=== PATIENT | female | born 1945 | race Caucasian/White ===

== ENCOUNTER 2016-07-23 11:44 | Inpatient (IN) | payer OTHER ==
[~2016-07-23] VITALS: Ht 160 cm; Wt 64.2 kg
[~2016-07-23 11:44] MED LIST: ACET325T14 PO; ASPI-614 PO; ASPI-621 PO; AZIT-14 PO; BACL-19 PO; CLOP75TA PO; CLOP75TA22 PO; DIPH25CA46 PO; DIPH25CA62 PO; FERR325T20 PO; HYDR25TA6 PO; METF500T4 PO; METO25TA35 PO; OMEP-110 PO; SIMV40TA3 PO
[2016-07-23] MEDS ORDERED: SODIUM CHLORIDE 0.9% 1,000ML IVBOLUS ONE (12:00)
[2016-07-23] MEDS ORDERED: SODIUM CHLORIDE FLUSH 10ML SYR IVF ONE (12:00)
[2016-07-23 12:35] LABS: ASPARTATE AMINO TRANSFERASE 15 U/L (15-37); BLOOD UREA NITROGEN 41 mg/dL (7-18)
[2016-07-23 12:41] LABS: IS PT STATUS REG ER OR PRE ER? YES
[2016-07-23 12:52] LABS: DIFF TOTAL CELLS COUNTED 100 CELL DIFF
[2016-07-23 12:57] LABS: VERIFY COUNTS? YES
[2016-07-23 12:58] LABS: ANISOCYTOSIS 1+; POLYCHROMASIA 2+
[2016-07-23 13:00] LABS: LARGE PLATELETS 1+
[2016-07-23] MEDS ORDERED: PANTOPRAZOLE 80 MG in SODIUM CHLORIDE 0.9% 50 ML IV ONE (14:00)
[2016-07-23] MEDS ORDERED: PANTOPRAZOLE 80 MG in SODIUM CHLORIDE 0.9% 100 ML IV SCH (14:00)
[2016-07-23] MEDS ORDERED: ACETAMINOPHEN 325 MG TABLET PO PRN (14:30)
[2016-07-23] MEDS ORDERED: POLYETHYLENE GLYCOL 17 GM PACKET PO PRN (14:30)
[2016-07-23] MEDS ORDERED: BISACODYL 10 MG SUPP PR PRN (14:30)
[2016-07-23] MEDS ORDERED: DOCUSATE 100 MG CAPSULE PO PRN (14:30)
[2016-07-23] MEDS ORDERED: ONDANSETRON 2MG/ML, 2ML IVP PRN (14:30)
[2016-07-23 14:37] VITALS: BP 112/52
[2016-07-23 14:51] VITALS: BP 111/53
[2016-07-23] MEDS ORDERED: DEXTROSE 50%, 50ML SYRINGE IVPush PRN (15:00)
[2016-07-23] MEDS ORDERED: DEXTROSE 4 GM TAB.CHEW PO PRN (15:00)
[2016-07-23] MEDS ORDERED: GLUCAGON 1 MG IM PRN (15:00)
[2016-07-23 15:40] VITALS: BP 129/57
[2016-07-23 16:26] VITALS: BP 98/64
[2016-07-23] MEDS: SODIUM CHLORIDE 0.9% 1,000 ML IV SCH (16:29)
[2016-07-23] MEDS: BACLOFEN 10 MG TABLET PO SCH ×2 (16:42→21:42)
[2016-07-23] MEDS: INSULIN ASPART 100 UNITS/ML, PEN SQ-INSULIN SCH ×2 (16:42→21:00)
[2016-07-23 17:30] VITALS: BP 98/62
[2016-07-23] MEDS: PANTOPRAZOLE 80 MG in SODIUM CHLORIDE 0.9% 100 ML IV SCH (17:31)
[2016-07-23 20:00] VITALS: BP 100/63
[2016-07-23] MEDS: SODIUM CHLORIDE FLUSH 10ML SYR IVF SCH (21:42)
[2016-07-23] MEDS: SIMVASTATIN 40 MG TABLET PO SCH (21:42)
[2016-07-23] MEDS: METOPROLOL TARTRATE 25 MG TABLET PO SCH (21:43)
[2016-07-24] VITALS (9 sets, daily range): BP systolic 93–124; BP diastolic 52–76
[2016-07-24] MEDS: PANTOPRAZOLE 80 MG in SODIUM CHLORIDE 0.9% 100 ML IV SCH (01:41)
[2016-07-24] MEDS: SODIUM CHLORIDE 0.9% 1,000 ML IV SCH (05:37)
[2016-07-24 06:14] LABS: OCCBLD OBC PASS
[2016-07-24 06:42] LABS: ASPARTATE AMINO TRANSFERASE 19 U/L (15-37); BLOOD UREA NITROGEN 24 mg/dL (7-18)
[2016-07-24] MEDS ORDERED: FENTANYL PF 100 MCG/2ML ONE (06:57)
[2016-07-24] MEDS ORDERED: MIDAZOLAM 1 MG/ML, 5ML ONE (06:58)
[2016-07-24] MEDS: INSULIN ASPART 100 UNITS/ML, PEN SQ-INSULIN SCH ×4 (07:00→21:00)
[2016-07-24] MEDS: SODIUM CHLORIDE FLUSH 10ML SYR IVF SCH ×2 (09:00→21:07)
[2016-07-24] MEDS ORDERED: HYDROCHLOROTHIAZIDE 25 MG TABLET PO SCH (09:00)
[2016-07-24] MEDS: METOPROLOL TARTRATE 25 MG TABLET PO SCH ×2 (09:00→21:01)
[2016-07-24] MEDS: BACLOFEN 10 MG TABLET PO SCH ×3 (09:55→21:01)
[2016-07-24] MEDS: PANTOPROZOLE 40MG TABLET PO SCH ×2 (11:00→23:17)
[2016-07-24] MEDS: SIMVASTATIN 40 MG TABLET PO SCH (21:01)
[2016-07-25 01:49] VITALS: BP 153/83
[2016-07-25 05:17] LABS: BLOOD UREA NITROGEN 19 mg/dL (7-18)
[2016-07-25 07:01] VITALS: BP 145/78
[2016-07-25] MEDS: INSULIN ASPART 100 UNITS/ML, PEN SQ-INSULIN SCH ×4 (07:42→21:00)
[2016-07-25] MEDS: BACLOFEN 10 MG TABLET PO SCH ×3 (08:22→21:52)
[2016-07-25] MEDS: METOPROLOL TARTRATE 25 MG TABLET PO SCH ×2 (08:23→21:52)
[2016-07-25] MEDS: SODIUM CHLORIDE FLUSH 10ML SYR IVF SCH ×2 (08:24→21:53)
[2016-07-25] MEDS ORDERED: Pantoprazole Sodium PO (10:39)
[2016-07-25] MEDS ORDERED: PANT40TA3 PO (10:40)
[2016-07-25] MEDS: PANTOPROZOLE 40MG TABLET PO SCH ×3 (11:26→21:51)
[2016-07-25 12:22] VITALS: BP 129/60
[2016-07-25] MEDS: FERROUS SULFATE 325 MG TABLET PO SCH (16:04)
[2016-07-25 18:37] VITALS: BP 116/60
[2016-07-25] MEDS: SIMVASTATIN 40 MG TABLET PO SCH (21:52)
[2016-07-26 02:19] VITALS: BP 142/61
[2016-07-26 06:48] VITALS: BP 124/66
[2016-07-26 07:33] LABS: ANISOCYTOSIS 1+; HYPOCHROMIA 1+; POLYCHROMASIA 1+
[2016-07-26 07:34] LABS: GIANT PLATELETS 1+; LARGE PLATELETS 1+
[2016-07-26] MEDS: FERROUS SULFATE 325 MG TABLET PO SCH (08:31)
[2016-07-26] MEDS: SODIUM CHLORIDE FLUSH 10ML SYR IVF SCH (08:32)
[2016-07-26] MEDS: BACLOFEN 10 MG TABLET PO SCH (08:32)
[2016-07-26] MEDS: METOPROLOL TARTRATE 25 MG TABLET PO SCH (08:32)
[2016-07-26] MEDS: INSULIN ASPART 100 UNITS/ML, PEN SQ-INSULIN SCH ×2 (08:32→11:00)
[2016-07-26] MEDS: PANTOPROZOLE 40MG TABLET PO SCH (11:15)
[2016-07-26 12:30] VITALS: BP 131/76
== END 2016-07-26 12:46 | disposition home or self-care (01) | DRG 377 ==
LOC: ED 13:08 → EDIP 13:47 → SUATTDRO 13:53 → 4WST 15:27 → 4NOR 07-24 15:25
PROC: 30233N1 Transfusion of Nonautologous Red Blood Cells into Peripheral Vein, Percutaneous Approach (ICD-10-PCS; 2016-07-23)
PROC: 30233N1 Transfusion of Nonautologous Red Blood Cells into Peripheral Vein, Percutaneous Approach (ICD-10-PCS; 2016-07-24)
PROC: 0DJ08ZZ Inspection of Upper Intestinal Tract, Via Natural or Artificial Opening Endoscopic (ICD-10-PCS; principal; 2016-07-24 07:30)
DX: K92.2 Gastrointestinal hemorrhage, unspecified (principal); N17.0 Acute kidney failure with tubular necrosis; D62 Acute posthemorrhagic anemia; D72.829 Elevated white blood cell count, unspecified; D69.6 Thrombocytopenia, unspecified; E78.5 Hyperlipidemia, unspecified; D47.3 Essential (hemorrhagic) thrombocythemia; D50.0 Iron deficiency anemia secondary to blood loss (chronic); D72.828 Other elevated white blood cell count; E86.0 Dehydration; I11.9 Hypertensive heart disease without heart failure; E11.42 Type 2 diabetes mellitus with diabetic polyneuropathy; F17.210 Nicotine dependence, cigarettes, uncomplicated; W18.30XA Fall on same level, unspecified, initial encounter; I25.10 Atherosclerotic heart disease of native coronary artery without angina pectoris; I25.2 Old myocardial infarction; Z82.49 Family history of ischemic heart disease and other diseases of the circulatory system; Z95.5 Presence of coronary angioplasty implant and graft; Z79.84 Long term (current) use of oral hypoglycemic drugs; Z79.82 Long term (current) use of aspirin; Z79.899 Other long term (current) drug therapy; Z90.49 Acquired absence of other specified parts of digestive tract; Z88.0 Allergy status to penicillin; Z88.5 Allergy status to narcotic agent; Y93.89 Activity, other specified; Y92.89 Other specified places as the place of occurrence of the external cause; Y99.8 Other external cause status
CPT/HCPCS: 36415; 70450; 71010; 80048; 80053; 82272; 82728; 82962; 83540; 83550; 83880; 84484; 85018; 85025; 85610; 86850; 86900; 86923; 87324; 93005; 96360; 96361; J1815; J2250; J3010; C9113; J7030; P9016

== ENCOUNTER 2016-11-11 09:08 | Emergency (ER) | payer OTHER ==
[~2016-11-11] VITALS: Ht 162.6 cm; Wt 68.0 kg
[~2016-11-11 09:08] MED LIST changes: -AZIT-14 PO; +AZIT250T89 PO; +PANT40TA3 PO; +Pantoprazole Sodium PO
[2016-11-11] MEDS ORDERED: GABA-827 PO (09:42)
[2016-11-11] MEDS ORDERED: LISI2.5T PO (09:42)
[2016-11-11] MEDS ORDERED: SODIUM CHLORIDE 0.9% 1,000ML IVBOLUS ONE ×2 (10:00→11:30)
[2016-11-11] MEDS ORDERED: SODIUM CHLORIDE FLUSH 10ML SYR IVF ONE (10:00)
[2016-11-11] MEDS ORDERED: LORazepam 2 MG/ML, 1ML IVPush ONE (10:00)
[2016-11-11] MEDS ORDERED: LORazepam 2 MG/ML, 1ML ONE (10:16)
[2016-11-11 10:23] LABS: HEMATOCRIT 33.5 % (34.6-47.8); HEMOGLOBIN 11.1 g/dL (11.7-16.4); WHITE BLOOD COUNT 5.7 x10^3/uL (3.4-10)
[2016-11-11 10:24] LABS: BLOOD UREA NITROGEN 23 mg/dL (7-18)
[2016-11-11 11:33] LABS: DIFF TOTAL CELLS COUNTED 100 CELL DIFF
[2016-11-11 11:35] LABS: VERIFY COUNTS? YES
[2016-11-11 11:36] LABS: ANISOCYTOSIS 2+
[2016-11-11 11:37] LABS: LARGE PLATELETS 1+; MICROCYTOSIS 1+; POLYCHROMASIA 1+
[2016-11-11 12:34] VITALS: BP 107/52
== END 2016-11-11 12:37 | disposition home or self-care (01) ==
LOC: ED 10:15
DX: R25.1 Tremor, unspecified (principal); E11.9 Type 2 diabetes mellitus without complications; I11.9 Hypertensive heart disease without heart failure; I25.10 Atherosclerotic heart disease of native coronary artery without angina pectoris; I25.2 Old myocardial infarction; Z88.0 Allergy status to penicillin; Z88.5 Allergy status to narcotic agent
CPT/HCPCS: 36415; 70450; 80048; 82040; 83735; 84443; 85025; 93005; 96361; 96374; 99285; J2060; J7030

== ENCOUNTER → 2017-03-18 | Outpatient (CLI) | payer OTHER ==
[~2017-03-18] MED LIST changes: -CLOP75TA22 PO; +CLOP75TA52 PO; +FERR325T18 PO; -FERR325T20 PO; +GABA-827 PO; +LISI2.5T PO
== END | disposition home or self-care (01) ==
LOC: CFH 10:11
PROVIDERS: ATTEND Family Medicine
DX: Z12.31 Encounter for screening mammogram for malignant neoplasm of breast (principal)
CPT/HCPCS: G0202

== ENCOUNTER 2017-05-08 13:21 | Inpatient (IN) | payer MEDICARE, OTHER ==
[~2017-05-08] VITALS: Ht 162.6 cm; Wt 69.5 kg
[2017-05-08] MEDS ORDERED: SODIUM CHLORIDE 0.9% 1,000 ML IV ONE (13:43)
[2017-05-08] MEDS ORDERED: SODIUM CHLORIDE FLUSH 10ML SYR IVF ONE (14:00)
[2017-05-08 14:24] LABS: BASOPHILS # (AUTO) 0.01 x10^3/uL (0-0.1); BASOPHILS % (AUTO) 0 % (0-1); EOSINOPHILS # (AUTO) 0.04 x10^3/uL (0-0.4); EOSINOPHILS % (AUTO) 1 % (1-7); LYMPHOCYTES # (AUTO) 0.79 x10^3/uL (1-3.4); LYMPHOCYTES % (AUTO) 11 % (22-44); MD NO; MEAN CORPUSCULAR HEMOGLOBIN 28.6 pg (27.0-34.8); MEAN CORPUSCULAR HGB CONC 33.1 g/dL (32.4-35.8); MEAN CORPUSCULAR VOLUME 86.4 fL (80-100); MEAN PLATELET VOLUME 8.6 fL (7.4-10.4); MONOCYTES # (AUTO) 0.46 x10^3/uL (0.2-0.8); MONOCYTES % (AUTO) 7 % (2-9); NEUTROPHILS # (AUTO) 5.67 x10^3/uL (1.8-6.8); NEUTROPHILS % (AUTO) 81 % (42-75); PLATELET COUNT 243 x10^3/uL (130-400); RED BLOOD COUNT 3.59 x10^6/uL (3.82-5.3); RED CELL DISTRIBUTION WIDTH 20.4 % (9.6-15.2)
[2017-05-08 14:33] LABS: INTERNATIONAL NORMALIZED RATIO 1.05 (0.93-1.1); PROTHROMBIN TIME 10.8 Seconds (9.6-11.5)
[2017-05-08 14:35] LABS: ALBUMIN 3.6 g/dL (3.4-5.0); ANION GAP 10 mmol/L (5-15); CALCIUM 8.2 mg/dL (8.5-10.1); CHLORIDE 105 mmol/L (98-107)
[2017-05-08 14:39] LABS: ALANINE AMINOTRANSFERASE 18 U/L (12-78); ALKALINE PHOSPHATASE 84 U/L (45-117); BILIRUBIN,TOTAL 0.4 mg/dL (0.2-1.0); CREATININE 1.59 mg/dL (0.55-1.02)
[2017-05-08 14:54] LABS: MICROSCOPIC NOT IND
[2017-05-08 15:06] LABS: CULTURE INDICATED? NO
[2017-05-08] MEDS ORDERED: SODIUM CHLORIDE FLUSH 10ML SYR IVF PRN (16:30)
[2017-05-08] MEDS ORDERED: SODIUM CHLORIDE 0.9% 1,000 ML IV SCH (17:40)
[2017-05-08] MEDS ORDERED: POLYETHYLENE GLYCOL 17 GM PACKET PO PRN (18:00)
[2017-05-08] MEDS ORDERED: ACETAMINOPHEN 325 MG TABLET PO PRN (18:00)
[2017-05-08] MEDS ORDERED: VANCOMYCIN PER PHARMACY MC PRN (18:00)
[2017-05-08] MEDS ORDERED: ENALAPRILAT 1.25 MG/ML, 2ML IVPush PRN (18:00)
[2017-05-08] MEDS ORDERED: CEFTRIAXONE 2 GM in SODIUM CHLORIDE 0.9% 50 ML IV SCH (18:00)
[2017-05-08] MEDS ORDERED: morphine SULFATE 10 MG/ML, 1ML IVPush PRN (18:00)
[2017-05-08] MEDS ORDERED: hydrALAzine 20 MG/ML, 1ML IVPush PRN (18:00)
[2017-05-08] MEDS ORDERED: VANCOMYCIN PMX 1GM/200ML 200 ML IV ONE (18:00)
[2017-05-08] MEDS: GABAPENTIN 400 MG CAPSULE PO SCH ×2 (18:00→20:44)
[2017-05-08] MEDS ORDERED: ONDANSETRON 2MG/ML, 2ML IVPush PRN (18:00)
[2017-05-08] MEDS ORDERED: BISACODYL 10 MG SUPP PR PRN (18:00)
[2017-05-08] MEDS ORDERED: PLEASE ENTER HEIGHT AND WEIGHT MC SCH (18:30)
[2017-05-08 18:39] LABS: FREE T4 (FREE THYROXINE) 1.3 ng/dL (0.76-1.46); THYROID STIMULATING HORMONE 1.62 mIU/L (0.358-3.740)
[2017-05-08 18:40] VITALS: BP 97/63
[2017-05-08 18:43] LABS: HEMOGLOBIN A1C 5.5 % (4.2-6.3)
[2017-05-08] MEDS ORDERED: PHARMACOKINETIC MONITORING MC PRN (19:30)
[2017-05-08] MEDS ORDERED: VANCOMYCIN 1,200 MG in SODIUM CHLORIDE 0.9% 250 ML IV ONE (19:30)
[2017-05-08] MEDS ORDERED: PHARMACOKINETIC CONSULTATION MC ONE (19:30)
[2017-05-08] MEDS: PANTOPROZOLE 40MG TABLET PO SCH (20:44)
[2017-05-08] MEDS: METOPROLOL TARTRATE 25 MG TABLET PO SCH (20:44)
[2017-05-08] MEDS: FERROUS SULFATE 325 MG TABLET PO SCH (20:44)
[2017-05-08] MEDS: HEPARIN 5,000 UNITS/ML, 1ML SQ SCH (20:45)
[2017-05-08] MEDS: SIMVASTATIN 40 MG TABLET PO SCH (20:45)
[2017-05-08] MEDS: INSULIN LISPRO 100 UNITS/ML, PEN SQ-INSULIN SCH (20:45)
[2017-05-08] MEDS: NICOTINE 14MG/24 HR PATCH.TD24 TD SCH (21:50)
[2017-05-08] MEDS: CEFTRIAXONE PMX 2GM/50ML 50 ML IVPB SCH (21:51)
[2017-05-08 23:27] VITALS: BP 109/57
[2017-05-09 02:06] VITALS: BP 97/60
[2017-05-09 05:02] LABS: BASOPHILS # (AUTO) 0.02 x10^3/uL (0-0.1); BASOPHILS % (AUTO) 0 % (0-1); CHLORIDE 113 mmol/L (98-107); EOSINOPHILS # (AUTO) 0.03 x10^3/uL (0-0.4); EOSINOPHILS % (AUTO) 1 % (1-7); LYMPHOCYTES # (AUTO) 0.94 x10^3/uL (1-3.4); LYMPHOCYTES % (AUTO) 17 % (22-44); MD NO; MEAN CORPUSCULAR HEMOGLOBIN 29.5 pg (27.0-34.8); MEAN CORPUSCULAR HGB CONC 34.3 g/dL (32.4-35.8); MEAN CORPUSCULAR VOLUME 85.8 fL (80-100); MEAN PLATELET VOLUME 8.7 fL (7.4-10.4); MONOCYTES % (AUTO) 7 % (2-9); NEUTROPHILS # (AUTO) 4.07 x10^3/uL (1.8-6.8); NEUTROPHILS % (AUTO) 75 % (42-75); PLATELET COUNT 251 x10^3/uL (130-400); RED BLOOD COUNT 3.24 x10^6/uL (3.82-5.3)
[2017-05-09 05:10] LABS: ALANINE AMINOTRANSFERASE 15 U/L (12-78); ALBUMIN 3.2 g/dL (3.4-5.0); ALKALINE PHOSPHATASE 75 U/L (45-117); ANION GAP 7 mmol/L (5-15); BILIRUBIN,TOTAL 0.3 mg/dL (0.2-1.0); CHOL/HDL RATIO 4.8; CHOLESTEROL, TOTAL 111 mg/dL (140-239); HDL CHOL % 21 % (28-40); HDL CHOLESTEROL (DIRECT) 23 mg/dL (40-60); LDL CHOLESTEROL,CALCULATED 28 mg/dL (54-169); LDL/HDL RATIO 1.2 (0.5-3.0); TOTAL PROTEIN 6.5 g/dL (6.4-8.2); TRIGLYCERIDES 301 mg/dL (50-200); VLDL CHOLESTEROL 60 mg/dL (0-25)
[2017-05-09] MEDS: GABAPENTIN 400 MG CAPSULE PO SCH ×4 (05:28→20:33)
[2017-05-09] MEDS: HEPARIN 5,000 UNITS/ML, 1ML SQ SCH ×3 (05:29→20:34)
[2017-05-09 06:35] VITALS: BP 102/64
[2017-05-09] MEDS ORDERED: GADOBUTROL 7.5 MMOL/7.5 ML PFS ONE (08:40)
[2017-05-09] MEDS ORDERED: METHOCARBAMOL 750 MG TABLET PO PRN (10:30)
[2017-05-09] MEDS: DEXAMETHASONE 4 MG/ML, 1ML IVPush SCH ×4 (10:30→23:30)
[2017-05-09] MEDS ORDERED: ERGOCALCIFEROL 50,000 UNIT CAPSULE PO SCH (10:30)
[2017-05-09] MEDS: INSULIN LISPRO 100 UNITS/ML, PEN SQ-INSULIN SCH ×4 (12:37→20:37)
[2017-05-09] MEDS: HYDROCHLOROTHIAZIDE 25 MG TABLET PO SCH (12:53)
[2017-05-09] MEDS: PANTOPROZOLE 40MG TABLET PO SCH (12:54)
[2017-05-09] MEDS: LISINOPRIL 5 MG TABLET PO SCH (12:54)
[2017-05-09] MEDS: METOPROLOL TARTRATE 25 MG TABLET PO SCH ×2 (12:54→20:33)
[2017-05-09] MEDS: OMEPRAZOLE 20 MG CAPSULE.DR PO SCH (12:54)
[2017-05-09] MEDS: FERROUS SULFATE 325 MG TABLET PO SCH ×2 (12:55→20:33)
[2017-05-09] MEDS: SENNA/DOCUSATE TABLET PO SCH (12:57)
[2017-05-09 13:15] VITALS: BP 120/79
[2017-05-09 20:09] VITALS: BP 110/68
[2017-05-09] MEDS: VANCOMYCIN 1,200 MG in SODIUM CHLORIDE 0.9% 250 ML IV SCH (20:32)
[2017-05-09] MEDS: SIMVASTATIN 40 MG TABLET PO SCH (20:33)
[2017-05-09] MEDS: NICOTINE 14MG/24 HR PATCH.TD24 TD SCH (20:39)
[2017-05-09] MEDS: CEFTRIAXONE PMX 2GM/50ML 50 ML IVPB SCH (22:00)
[2017-05-09] MEDS ORDERED: VANCOMYCIN 1,200 MG in SODIUM CHLORIDE 0.9% 250 ML IV SCH (23:00)
[2017-05-10 01:53] VITALS: BP 110/69
[2017-05-10] MEDS: GABAPENTIN 400 MG CAPSULE PO SCH ×4 (05:37→21:28)
[2017-05-10] MEDS: DEXAMETHASONE 4 MG/ML, 1ML IVPush SCH ×4 (05:37→22:40)
[2017-05-10] MEDS: HEPARIN 5,000 UNITS/ML, 1ML SQ SCH ×3 (05:37→21:29)
[2017-05-10 06:57] VITALS: BP 121/54
[2017-05-10] MEDS: INSULIN LISPRO 100 UNITS/ML, PEN SQ-INSULIN SCH ×4 (07:00→21:30)
[2017-05-10] MEDS: LISINOPRIL 5 MG TABLET PO SCH (08:28)
[2017-05-10] MEDS: FERROUS SULFATE 325 MG TABLET PO SCH ×2 (08:29→21:28)
[2017-05-10] MEDS: METOPROLOL TARTRATE 25 MG TABLET PO SCH ×2 (08:29→21:28)
[2017-05-10] MEDS: HYDROCHLOROTHIAZIDE 25 MG TABLET PO SCH (08:29)
[2017-05-10] MEDS: SENNA/DOCUSATE TABLET PO SCH (08:30)
[2017-05-10] MEDS: OMEPRAZOLE 20 MG CAPSULE.DR PO SCH (08:32)
[2017-05-10 12:36] VITALS: BP 118/72
[2017-05-10 19:31] VITALS: BP 129/73
[2017-05-10] MEDS: VANCOMYCIN 1,200 MG in SODIUM CHLORIDE 0.9% 250 ML IV SCH (20:11)
[2017-05-10] MEDS: SIMVASTATIN 40 MG TABLET PO SCH (21:28)
[2017-05-10] MEDS: NICOTINE 14MG/24 HR PATCH.TD24 TD SCH (21:29)
[2017-05-10] MEDS: CEFTRIAXONE PMX 2GM/50ML 50 ML IVPB SCH (22:39)
[2017-05-11 01:28] VITALS: BP 114/63
[2017-05-11 04:55] LABS: CHLORIDE 105 mmol/L (98-107)
[2017-05-11] MEDS: GABAPENTIN 400 MG CAPSULE PO SCH ×3 (04:56→15:59)
[2017-05-11] MEDS: DEXAMETHASONE 4 MG/ML, 1ML IVPush SCH ×3 (04:56→15:58)
[2017-05-11] MEDS: HEPARIN 5,000 UNITS/ML, 1ML SQ SCH ×2 (04:56→13:33)
[2017-05-11 05:00] LABS: ANION GAP 8 mmol/L (5-15); CALCIUM 8.7 mg/dL (8.5-10.1); CREATININE 0.78 mg/dL (0.55-1.02)
[2017-05-11 06:28] VITALS: BP 115/65
[2017-05-11] MEDS: OMEPRAZOLE 20 MG CAPSULE.DR PO SCH (07:58)
[2017-05-11] MEDS: INSULIN LISPRO 100 UNITS/ML, PEN SQ-INSULIN SCH ×3 (07:58→15:59)
[2017-05-11] MEDS: SENNA/DOCUSATE TABLET PO SCH (09:56)
[2017-05-11] MEDS: FERROUS SULFATE 325 MG TABLET PO SCH (09:56)
[2017-05-11] MEDS: LISINOPRIL 5 MG TABLET PO SCH (09:56)
[2017-05-11] MEDS: HYDROCHLOROTHIAZIDE 25 MG TABLET PO SCH (09:56)
[2017-05-11] MEDS: METOPROLOL TARTRATE 25 MG TABLET PO SCH (09:57)
[2017-05-11 13:15] VITALS: BP 115/70
[2017-05-11] MEDS ORDERED: OMEP-110 PO (15:06)
[2017-05-11] MEDS ORDERED: ERGO500017 PO (15:06)
[2017-05-11] MEDS ORDERED: METH750T2 PO (15:06)
[2017-05-11] MEDS ORDERED: ACET325T14 PO (15:06)
[2017-05-11] MEDS ORDERED: METH4TAB2 PO (15:06)
== END 2017-05-11 17:13 | disposition home or self-care (01) | DRG 682 ==
LOC: ED 14:00 → EDIP 16:22 → 4EST 17:47
PROVIDERS: ADMIT Internal Medicine Pulmonary Disease; ATTEND Internal Medicine Pulmonary Disease
PROC: 0T9B70Z Drainage of Bladder with Drainage Device, Via Natural or Artificial Opening (ICD-10-PCS; principal; 2017-05-08)
DX: N17.9 Acute kidney failure, unspecified (principal); G93.41 Metabolic encephalopathy; E11.22 Type 2 diabetes mellitus with diabetic chronic kidney disease; E11.42 Type 2 diabetes mellitus with diabetic polyneuropathy; M48.02 Spinal stenosis, cervical region; G95.20 Unspecified cord compression; K92.2 Gastrointestinal hemorrhage, unspecified; I12.9 Hypertensive chronic kidney disease with stage 1 through stage 4 chronic kidney disease, or unspecified chronic kidney disease; W18.30XA Fall on same level, unspecified, initial encounter; I07.1 Rheumatic tricuspid insufficiency; D50.9 Iron deficiency anemia, unspecified; F17.200 Nicotine dependence, unspecified, uncomplicated; E78.5 Hyperlipidemia, unspecified; N18.2 Chronic kidney disease, stage 2 (mild); I25.10 Atherosclerotic heart disease of native coronary artery without angina pectoris; E55.9 Vitamin D deficiency, unspecified; I35.0 Nonrheumatic aortic (valve) stenosis; I99.8 Other disorder of circulatory system; M19.90 Unspecified osteoarthritis, unspecified site; M54.12 Radiculopathy, cervical region; Y92.009 Unspecified place in unspecified non-institutional (private) residence as the place of occurrence of the external cause; I25.2 Old myocardial infarction; Z98.1 Arthrodesis status; Z95.5 Presence of coronary angioplasty implant and graft; Z88.5 Allergy status to narcotic agent; Z88.0 Allergy status to penicillin
CPT/HCPCS: 36415; 70450; 70553; 71045; 72156; 72157; 72158; 80048; 80053; 80061; 80202; 81003; 82140; 82306; 82607; 82962; 83036; 83605; 83735; 84100; 84155; 84156; 84165; 84166; 84439; 84443; 85025; 85610; 85730; 87040; 93005; 93306; 93880; 99285; A9585; J0696; J1100; J1644; J3370; J1815; J7050

== ENCOUNTER → 2018-01-01 | Outpatient (CLI) | payer MEDICARE, MEDICAID ==
[~2018-01-01] MED LIST changes: +CALC1CAP8 PO; +CHOL500050 PO; +ERGO500017 PO; +HYDR50TA13 PO; +MELA5TAB19 PO; +METF500T17 PO; -METF500T4 PO; +METH4TAB2 PO; +METH750T2 PO; +PRIM50TA PO
[2018-01-01 10:32] LABS: BASOPHILS # (AUTO) 0.05 x10^3/uL (0-0.1); BASOPHILS % (AUTO) 1 % (0-1); EOSINOPHILS # (AUTO) 0.12 x10^3/uL (0-0.4); EOSINOPHILS % (AUTO) 2 % (1-7); LYMPHOCYTES # (AUTO) 1.18 x10^3/uL (1-3.4); LYMPHOCYTES % (AUTO) 16 % (22-44); MD NO; MEAN CORPUSCULAR HEMOGLOBIN 29.1 pg (27.0-34.8); MEAN CORPUSCULAR HGB CONC 33.4 g/dL (32.4-35.8); MEAN CORPUSCULAR VOLUME 87.1 fL (80-100); MEAN PLATELET VOLUME 8.5 fL (7.4-10.4); MONOCYTES # (AUTO) 0.43 x10^3/uL (0.2-0.8); MONOCYTES % (AUTO) 6 % (2-9); NEUTROPHILS # (AUTO) 5.46 x10^3/uL (1.8-6.8); NEUTROPHILS % (AUTO) 75 % (42-75); PLATELET COUNT 397 x10^3/uL (130-400); RED BLOOD COUNT 3.98 x10^6/uL (3.82-5.3); RED CELL DISTRIBUTION WIDTH 21.7 % (9.6-15.2)
[2018-01-01 10:41] LABS: INTERNATIONAL NORMALIZED RATIO 1.02 (0.93-1.1); PROTHROMBIN TIME 10.5 Seconds (9.6-11.5)
[2018-01-01 10:43] LABS: ALBUMIN 4.1 g/dL (3.4-5.0); ANION GAP 9 mmol/L (5-15); CALCIUM 9.4 mg/dL (8.5-10.1); CHLORIDE 100 mmol/L (98-107)
[2018-01-01 10:46] LABS: ALANINE AMINOTRANSFERASE 21 U/L (12-78); ALKALINE PHOSPHATASE 112 U/L (45-117); BILIRUBIN,TOTAL 0.5 mg/dL (0.2-1.0); CREATININE 1.26 mg/dL (0.55-1.02); TOTAL PROTEIN 8.1 g/dL (6.4-8.2)
[2018-01-01 11:10] LABS: MICROSCOPIC INDICATED
[2018-01-01 11:13] LABS: CULTURE INDICATED? YES
== END | disposition home or self-care (01) ==
LOC: STAR 08:56
PROVIDERS: ATTEND Neurological Surgery
DX: Z01.818 Encounter for other preprocedural examination (principal); M43.22 Fusion of spine, cervical region; M41.86 Other forms of scoliosis, lumbar region; M48.062 Spinal stenosis, lumbar region with neurogenic claudication; M43.16 Spondylolisthesis, lumbar region; M54.16 Radiculopathy, lumbar region; M51.36 Other intervertebral disc degeneration, lumbar region
CPT/HCPCS: 36415; 71046; 72114; 80053; 81001; 85025; 85610; 85730; 87086; 93005

== ENCOUNTER 2018-01-13 07:00 | Inpatient (IN) | payer MEDICARE, MEDICAID ==
[~2018-01-13] VITALS: Ht 160 cm; Wt 71.2 kg
[2018-01-13] MEDS ORDERED: MIDAZOLAM 1 MG/ML, 2ML ONE (08:31)
[2018-01-13] MEDS ORDERED: FENTANYL PF 250 MCG/5ML ONE (08:31)
[2018-01-13] MEDS ORDERED: PROPOFOL 50 ML ONE (10:00)
[2018-01-13] MEDS ORDERED: LACTATED RINGERS 1,000 ML IV SCH ×2 (10:00→19:00)
[2018-01-13] MEDS ORDERED: GABAPENTIN 300 MG CAPSULE PO ONE (10:00)
[2018-01-13] MEDS ORDERED: ACETAMINOPHEN 500 MG TABLET PO ONE (10:00)
[2018-01-13] MEDS ORDERED: OXYcodone IR 5MG TABLET PO ONE (10:00)
[2018-01-13] MEDS ORDERED: SCOPOLAMINE PATCH, 1.5MG PATCH.TD72 TD ONE (10:00)
[2018-01-13 10:02] VITALS: BP 145/79
[2018-01-13] MEDS ORDERED: THROMBIN 20,000 UNIT VIAL TP ONE (11:07)
[2018-01-13] MEDS ORDERED: BUPIVACAINE/PF 0.5% ONE (11:07)
[2018-01-13] MEDS ORDERED: BUPIVACAINE/PF-EPI 0.5% 1:200K ONE (11:07)
[2018-01-13] MEDS ORDERED: BACITRACIN 50,000 UNIT ONE ×2 (11:08→11:21)
[2018-01-13] MEDS ORDERED: VANCOMYCIN 1,000 MG ONE ×2 (11:08)
[2018-01-13] MEDS ORDERED: ONDANSETRON 2MG/ML, 2ML ONE ×2 (11:28→15:27)
[2018-01-13] MEDS ORDERED: SUCCINYLCHOLINE 20 MG/ML, 10ML ONE (11:28)
[2018-01-13] MEDS ORDERED: ROCURONIUM 10 MG/ML,10ML ONE (11:28)
[2018-01-13] MEDS ORDERED: PROCHLORPERAZINE 5 MG/ML, 2ML ONE (15:27)
[2018-01-13] MEDS ORDERED: hydrALAzine 20 MG/ML, 1ML IV PRN (15:30)
[2018-01-13] MEDS ORDERED: FENTANYL PF 100 MCG/2ML IV PRN (15:30)
[2018-01-13] MEDS ORDERED: HYDROmorphone 1 MG/ML, 1ML IV PRN (15:30)
[2018-01-13] MEDS ORDERED: ONDANSETRON 2MG/ML, 2ML IV PRN ×2 (15:30→19:30)
[2018-01-13] MEDS ORDERED: PROMETHAZINE 25 MG/ML, 1ML IV PRN (15:30)
[2018-01-13] MEDS ORDERED: MEPERIDINE/PF 25MG/0.5ML IVPush PRN (15:30)
[2018-01-13] MEDS ORDERED: OXYcodone 5 MG/5 ML ORAL.SOL UDC PO PRN (15:30)
[2018-01-13] MEDS ORDERED: LABETALOL 5MG/ML, 20ML IV PRN ×2 (15:30→19:30)
[2018-01-13] MEDS ORDERED: OXYcodone 5 MG/5 ML ORAL.SOL UDC ONE (15:57)
[2018-01-13] MEDS ORDERED: PROCHLORPERAZINE 5 MG/ML, 2ML IVPush ONE (16:00)
[2018-01-13] MEDS ORDERED: EPHEDRINE 50 MG/ML, 1ML ONE (16:13)
[2018-01-13 16:18] LABS: MD YES; MEAN CORPUSCULAR HEMOGLOBIN 28.6 pg (27.0-34.8); MEAN CORPUSCULAR HGB CONC 32.2 g/dL (32.4-35.8); MEAN CORPUSCULAR VOLUME 88.7 fL (80-100); MEAN PLATELET VOLUME 9.2 fL (7.4-10.4); PLATELET COUNT 466 x10^3/uL (130-400); RED BLOOD COUNT 2.64 x10^6/uL (3.82-5.3); RED CELL DISTRIBUTION WIDTH 21.1 % (9.6-15.2)
[2018-01-13 16:28] LABS: INTERNATIONAL NORMALIZED RATIO 1.14 (0.93-1.1); PROTHROMBIN TIME 11.7 Seconds (9.6-11.5)
[2018-01-13] MEDS ORDERED: EPHEDRINE 50 MG/ML, 1ML IVPush PRN (16:30)
[2018-01-13 16:47] LABS: BAND#(MANUAL) 0.42 x10^3/uL; BANDS%(MANUAL) 3 % (0-7); BASOS#(MANUAL) 0.28 x10^3/uL (0-0.1); BASOS% (MANUAL) 2 % (0-1); LYMPH#(MANUAL) 1.97 x10^3/uL (1-3.4); LYMPHS% (MANUAL) 14 % (22-44); METAMYELOCYTES# (MANUAL) 0.14 x10^3/uL (0-0); METAMYELOCYTES% (MANUAL) 1 % (0-1); MONOS#(MANUAL) 0.42 x10^3/uL (0.3-2.7); MONOS% (MANUAL) 3 % (2-9); MYELOCYTES# (MANUAL) 0.14 x10^3/uL (0-0); MYELOCYTES% (MANUAL) 1 % (0-0); SEGS% (MANUAL) 76 % (42-75)
[2018-01-13 16:48] LABS: ANISOCYTOSIS 1+; HYPOCHROMIA 1+; MICROCYTOSIS 1+; POLYCHROMASIA 1+
[2018-01-13 16:49] LABS: <PLATELET ESTIMATE> INCREASED; <PLT MORPHOLOGY> NORMAL PLT MORPH; OVALOCYTES 1+
[2018-01-13] MEDS ORDERED: FUROSEMIDE 20 MG/2 ML IV ONE (17:00)
[2018-01-13 17:28] VITALS: BP 114/57
[2018-01-13 17:52] VITALS: BP 121/66
[2018-01-13 18:20] VITALS: BP 108/65
[2018-01-13 19:25] VITALS: BP 97/59
[2018-01-13] MEDS: BACLOFEN 10 MG TABLET PO SCH (19:30)
[2018-01-13] MEDS ORDERED: morphine SULFATE 10 MG/ML, 1ML IV PRN (19:30)
[2018-01-13] MEDS ORDERED: hydrOXyzine 50MG TABLET PO PRN (19:30)
[2018-01-13] MEDS ORDERED: MAGNESIUM HYDROXIDE 8%, 30ML UDC PO PRN (19:30)
[2018-01-13] MEDS: [UNRECOGNIZED DRUG - REMARK] MC SCH (19:30)
[2018-01-13] MEDS ORDERED: DIPHENHYDRAMINE 50 MG/ML, 1ML IVPush PRN (19:30)
[2018-01-13] MEDS ORDERED: OXYcodone IR 5MG TABLET PO PRN (19:30)
[2018-01-13] MEDS ORDERED: DIPHENHYDRAMINE 25 MG CAPSULE PO PRN (19:30)
[2018-01-13] MEDS ORDERED: BISACODYL 10 MG SUPP PR PRN (19:30)
[2018-01-13] MEDS ORDERED: HYDROcodone/APAP 10/325 MG TABLET PO PRN (20:00)
[2018-01-13] MEDS: CEFAZOLIN PMX 1GM/50ML 50 ML IVPB SCH (20:14)
[2018-01-13] MEDS: MELATONIN 5 MG TABLET PO SCH (20:46)
[2018-01-13 20:58] LABS: BASOPHILS % (AUTO) 0 % (0-1); EOSINOPHILS # (AUTO) 0.02 x10^3/uL (0-0.4); EOSINOPHILS % (AUTO) 0 % (1-7); LYMPHOCYTES # (AUTO) 0.53 x10^3/uL (1-3.4); LYMPHOCYTES % (AUTO) 5 % (22-44); MD NO; MEAN CORPUSCULAR HEMOGLOBIN 29.5 pg (27.0-34.8); MEAN CORPUSCULAR HGB CONC 33.8 g/dL (32.4-35.8); MEAN CORPUSCULAR VOLUME 87.3 fL (80-100); MEAN PLATELET VOLUME 8.4 fL (7.4-10.4); MONOCYTES # (AUTO) 0.45 x10^3/uL (0.2-0.8); MONOCYTES % (AUTO) 4 % (2-9); NEUTROPHILS # (AUTO) 10.12 x10^3/uL (1.8-6.8); NEUTROPHILS % (AUTO) 91 % (42-75); PLATELET COUNT 294 x10^3/uL (130-400); RED BLOOD COUNT 3.44 x10^6/uL (3.82-5.3); RED CELL DISTRIBUTION WIDTH 19.3 % (9.6-15.2)
[2018-01-13] MEDS: INSULIN REGULAR 100 UNITS/ML, 3ML VIAL SQ-INSULIN SCH (21:00)
[2018-01-13] MEDS: PRIMIDONE 50 MG TABLET PO SCH (21:00)
[2018-01-13] MEDS ORDERED: PRIMIDONE 250 MG TABLET ONE (21:02)
[2018-01-13] MEDS: GABAPENTIN 400 MG CAPSULE PO SCH (21:06)
[2018-01-13] MEDS: FAMOTIDINE 20 MG TABLET PO SCH (21:06)
[2018-01-13] MEDS: FERROUS SULFATE 325 MG TABLET PO SCH (21:07)
[2018-01-13] MEDS: SIMVASTATIN 40 MG TABLET PO SCH (21:07)
[2018-01-14 00:09] VITALS: BP 99/56
[2018-01-14] MEDS: LACTATED RINGERS 1,000 ML IV SCH ×3 (00:30→17:04)
[2018-01-14] MEDS: [UNRECOGNIZED DRUG - REMARK] MC SCH ×3 (02:51→19:24)
[2018-01-14] MEDS: BACLOFEN 10 MG TABLET PO SCH ×4 (02:51→20:45)
[2018-01-14] MEDS: CEFAZOLIN PMX 1GM/50ML 50 ML IVPB SCH (03:44)
[2018-01-14 04:25] VITALS: BP 103/52
[2018-01-14] MEDS: METOPROLOL TARTRATE 25 MG TABLET PO SCH ×2 (05:42→17:03)
[2018-01-14 05:54] LABS: BASOPHILS # (AUTO) 0.03 x10^3/uL (0-0.1); BASOPHILS % (AUTO) 0 % (0-1); EOSINOPHILS # (AUTO) 0.01 x10^3/uL (0-0.4); EOSINOPHILS % (AUTO) 0 % (1-7); LYMPHOCYTES # (AUTO) 0.66 x10^3/uL (1-3.4); LYMPHOCYTES % (AUTO) 8 % (22-44); MD NO; MEAN CORPUSCULAR HGB CONC 34.8 g/dL (32.4-35.8); MEAN CORPUSCULAR VOLUME 86.4 fL (80-100); MEAN PLATELET VOLUME 8.5 fL (7.4-10.4); MONOCYTES # (AUTO) 0.49 x10^3/uL (0.2-0.8); MONOCYTES % (AUTO) 6 % (2-9); NEUTROPHILS # (AUTO) 6.97 x10^3/uL (1.8-6.8); NEUTROPHILS % (AUTO) 86 % (42-75); PLATELET COUNT 262 x10^3/uL (130-400); RED BLOOD COUNT 2.91 x10^6/uL (3.82-5.3); RED CELL DISTRIBUTION WIDTH 19.6 % (9.6-15.2)
[2018-01-14 06:01] LABS: ANION GAP 8 mmol/L (5-15); CALCIUM 7.8 mg/dL (8.5-10.1); CHLORIDE 107 mmol/L (98-107); CREATININE 1.16 mg/dL (0.55-1.02)
[2018-01-14] MEDS: INSULIN REGULAR 100 UNITS/ML, 3ML VIAL SQ-INSULIN SCH ×4 (06:06→20:46)
[2018-01-14] MEDS: ENOXAPARIN 40 MG/0.4 ML SQ SCH (06:06)
[2018-01-14 08:00] VITALS: BP 99/54
[2018-01-14] MEDS ORDERED: SODIUM CHLORIDE 0.9% 250 ML IV ONE (08:30)
[2018-01-14] MEDS: SENNA/DOCUSATE TABLET PO SCH (08:45)
[2018-01-14] MEDS: GABAPENTIN 400 MG CAPSULE PO SCH ×3 (08:46→20:45)
[2018-01-14] MEDS: metFORMIN 850 MG TABLET PO SCH ×2 (08:46→17:03)
[2018-01-14] MEDS: FAMOTIDINE 20 MG TABLET PO SCH ×2 (08:46→20:45)
[2018-01-14] MEDS: FERROUS SULFATE 325 MG TABLET PO SCH ×3 (08:46→20:45)
[2018-01-14 13:30] VITALS: BP 93/40
[2018-01-14 15:10] LABS: BASOPHILS # (AUTO) 0.03 x10^3/uL (0-0.1); BASOPHILS % (AUTO) 0 % (0-1); EOSINOPHILS # (AUTO) 0.01 x10^3/uL (0-0.4); EOSINOPHILS % (AUTO) 0 % (1-7); LYMPHOCYTES # (AUTO) 0.57 x10^3/uL (1-3.4); LYMPHOCYTES % (AUTO) 9 % (22-44); MEAN CORPUSCULAR HEMOGLOBIN 30.1 pg (27.0-34.8); MEAN CORPUSCULAR HGB CONC 34.7 g/dL (32.4-35.8); MEAN CORPUSCULAR VOLUME 86.6 fL (80-100); MEAN PLATELET VOLUME 8.7 fL (7.4-10.4); MONOCYTES # (AUTO) 0.46 x10^3/uL (0.2-0.8); MONOCYTES % (AUTO) 7 % (2-9); NEUTROPHILS % (AUTO) 84 % (42-75); PLATELET COUNT 244 x10^3/uL (130-400); RED BLOOD COUNT 2.66 x10^6/uL (3.82-5.3)
[2018-01-14 15:11] LABS: MD NO
[2018-01-14 20:31] VITALS: BP 97/49
[2018-01-14] MEDS: MELATONIN 5 MG TABLET PO SCH (20:39)
[2018-01-14] MEDS ORDERED: PRIMIDONE 250 MG TABLET ONE (20:41)
[2018-01-14] MEDS: PRIMIDONE 50 MG TABLET PO SCH (20:45)
[2018-01-14] MEDS: SIMVASTATIN 40 MG TABLET PO SCH (20:45)
[2018-01-15] VITALS (11 sets, daily range): BP systolic 97–142; BP diastolic 47–70
[2018-01-15] MEDS: BACLOFEN 10 MG TABLET PO SCH ×4 (02:17→21:11)
[2018-01-15] MEDS: LACTATED RINGERS 1,000 ML IV SCH ×2 (02:17→16:08)
[2018-01-15] MEDS: [UNRECOGNIZED DRUG - REMARK] MC SCH ×2 (02:31→03:30)
[2018-01-15 04:42] LABS: ANION GAP 6 mmol/L (5-15); CALCIUM 7.8 mg/dL (8.5-10.1); CHLORIDE 109 mmol/L (98-107); CREATININE 0.77 mg/dL (0.55-1.02); MEAN CORPUSCULAR HGB CONC 34.4 g/dL (32.4-35.8); PLATELET COUNT 258 x10^3/uL (130-400); RED BLOOD COUNT 2.59 x10^6/uL (3.82-5.3); RED CELL DISTRIBUTION WIDTH 19.8 % (9.6-15.2)
[2018-01-15 05:01] LABS: BASOPHILS # (AUTO) 0.03 x10^3/uL (0-0.1); BASOPHILS % (AUTO) 1 % (0-1); EOSINOPHILS # (AUTO) 0.01 x10^3/uL (0-0.4); EOSINOPHILS % (AUTO) 0 % (1-7); LYMPHOCYTES # (AUTO) 0.67 x10^3/uL (1-3.4); LYMPHOCYTES % (AUTO) 11 % (22-44); MD SCAN; MONOCYTES # (AUTO) 0.63 x10^3/uL (0.2-0.8); MONOCYTES % (AUTO) 10 % (2-9); NEUTROPHILS # (AUTO) 5.04 x10^3/uL (1.8-6.8); NEUTROPHILS % (AUTO) 79 % (42-75)
[2018-01-15] MEDS: ENOXAPARIN 40 MG/0.4 ML SQ SCH (05:25)
[2018-01-15] MEDS: METOPROLOL TARTRATE 25 MG TABLET PO SCH ×2 (06:00→17:30)
[2018-01-15] MEDS: INSULIN REGULAR 100 UNITS/ML, 3ML VIAL SQ-INSULIN SCH ×4 (07:00→21:00)
[2018-01-15] MEDS: GABAPENTIN 400 MG CAPSULE PO SCH ×3 (10:06→21:11)
[2018-01-15] MEDS: SENNA/DOCUSATE TABLET PO SCH (10:06)
[2018-01-15] MEDS: metFORMIN 850 MG TABLET PO SCH ×2 (10:06→16:07)
[2018-01-15] MEDS: FERROUS SULFATE 325 MG TABLET PO SCH ×3 (10:06→21:11)
[2018-01-15] MEDS: FAMOTIDINE 20 MG TABLET PO SCH ×2 (10:06→21:11)
[2018-01-15] MEDS: PRIMIDONE 50 MG TABLET PO SCH (21:11)
[2018-01-15] MEDS: MELATONIN 5 MG TABLET PO SCH (21:11)
[2018-01-15] MEDS: SIMVASTATIN 40 MG TABLET PO SCH (21:11)
[2018-01-16 01:20] VITALS: BP 118/67
[2018-01-16] MEDS: [UNRECOGNIZED DRUG - REMARK] MC SCH ×4 (03:30→17:18)
[2018-01-16] MEDS: BACLOFEN 10 MG TABLET PO SCH ×4 (03:43→21:51)
[2018-01-16 05:38] LABS: BASOPHILS # (AUTO) 0.03 x10^3/uL (0-0.1); BASOPHILS % (AUTO) 0 % (0-1); EOSINOPHILS # (AUTO) 0.01 x10^3/uL (0-0.4); EOSINOPHILS % (AUTO) 0 % (1-7); LYMPHOCYTES # (AUTO) 0.94 x10^3/uL (1-3.4); LYMPHOCYTES % (AUTO) 12 % (22-44); MD NO; MEAN CORPUSCULAR VOLUME 88.1 fL (80-100); MEAN PLATELET VOLUME 8.8 fL (7.4-10.4); MONOCYTES # (AUTO) 0.78 x10^3/uL (0.2-0.8); MONOCYTES % (AUTO) 10 % (2-9); NEUTROPHILS # (AUTO) 5.93 x10^3/uL (1.8-6.8); NEUTROPHILS % (AUTO) 77 % (42-75); PLATELET COUNT 249 x10^3/uL (130-400); RED BLOOD COUNT 3.03 x10^6/uL (3.82-5.3); RED CELL DISTRIBUTION WIDTH 18.1 % (9.6-15.2)
[2018-01-16] MEDS: LACTATED RINGERS 1,000 ML IV SCH ×4 (06:04→21:50)
[2018-01-16] MEDS: METOPROLOL TARTRATE 25 MG TABLET PO SCH ×2 (06:14→17:07)
[2018-01-16] MEDS: ENOXAPARIN 40 MG/0.4 ML SQ SCH (06:14)
[2018-01-16] MEDS: INSULIN REGULAR 100 UNITS/ML, 3ML VIAL SQ-INSULIN SCH ×4 (06:18→21:58)
[2018-01-16] MEDS: SENNA/DOCUSATE TABLET PO SCH (08:04)
[2018-01-16] MEDS: metFORMIN 850 MG TABLET PO SCH ×2 (08:05→17:07)
[2018-01-16] MEDS: FAMOTIDINE 20 MG TABLET PO SCH ×2 (08:05→21:51)
[2018-01-16] MEDS: GABAPENTIN 400 MG CAPSULE PO SCH ×3 (08:05→21:50)
[2018-01-16] MEDS: FERROUS SULFATE 325 MG TABLET PO SCH ×3 (08:05→21:51)
[2018-01-16 08:07] VITALS: BP 125/61
[2018-01-16 13:22] VITALS: BP 113/66
[2018-01-16] MEDS: HYDROcodone/APAP 5/325 TABLET PO PRN (15:27)
[2018-01-16 20:52] VITALS: BP 111/72
[2018-01-16] MEDS: SIMVASTATIN 40 MG TABLET PO SCH (21:51)
[2018-01-16] MEDS: PRIMIDONE 50 MG TABLET PO SCH (21:51)
[2018-01-16] MEDS: MELATONIN 5 MG TABLET PO SCH (21:51)
[2018-01-17 00:36] VITALS: BP 127/77
[2018-01-17] MEDS: BACLOFEN 10 MG TABLET PO SCH ×4 (02:30→21:37)
[2018-01-17] MEDS: INSULIN REGULAR 100 UNITS/ML, 3ML VIAL SQ-INSULIN SCH ×4 (07:00→21:00)
[2018-01-17] MEDS: ENOXAPARIN 40 MG/0.4 ML SQ SCH (07:48)
[2018-01-17] MEDS: METOPROLOL TARTRATE 25 MG TABLET PO SCH ×2 (07:49→16:46)
[2018-01-17 07:52] VITALS: BP 141/86
[2018-01-17] MEDS: LACTATED RINGERS 1,000 ML IV SCH ×2 (07:58→16:41)
[2018-01-17] MEDS: [UNRECOGNIZED DRUG - REMARK] MC SCH ×2 (08:19→11:30)
[2018-01-17] MEDS: FAMOTIDINE 20 MG TABLET PO SCH ×2 (08:31→21:37)
[2018-01-17] MEDS: metFORMIN 850 MG TABLET PO SCH ×2 (08:31→16:41)
[2018-01-17] MEDS: GABAPENTIN 400 MG CAPSULE PO SCH ×3 (08:31→21:37)
[2018-01-17] MEDS: FERROUS SULFATE 325 MG TABLET PO SCH ×3 (08:31→21:37)
[2018-01-17] MEDS: SENNA/DOCUSATE TABLET PO SCH (08:32)
[2018-01-17 09:52] LABS: CLOSTRIDIUM DIFFICILE ANTIGEN NEGATIVE; CLOSTRIDIUM DIFFICILE TOXIN NEGATIVE (Negative)
[2018-01-17] MEDS: HYDROcodone/APAP 5/325 TABLET PO PRN (11:38)
[2018-01-17 13:39] VITALS: BP 103/71
[2018-01-17 19:22] VITALS: BP 94/55
[2018-01-17] MEDS: MELATONIN 5 MG TABLET PO SCH (21:37)
[2018-01-17] MEDS: PRIMIDONE 50 MG TABLET PO SCH (21:37)
[2018-01-17] MEDS: SIMVASTATIN 40 MG TABLET PO SCH (21:37)
[2018-01-18] MEDS: LACTATED RINGERS 1,000 ML IV SCH ×2 (01:39→08:10)
[2018-01-18 01:41] VITALS: BP 115/77
[2018-01-18] MEDS: BACLOFEN 10 MG TABLET PO SCH ×4 (03:31→21:23)
[2018-01-18 06:15] LABS: MEAN CORPUSCULAR HEMOGLOBIN 29.9 pg (27.0-34.8); MEAN CORPUSCULAR HGB CONC 33.4 g/dL (32.4-35.8); MEAN CORPUSCULAR VOLUME 89.4 fL (80-100); MEAN PLATELET VOLUME 8.7 fL (7.4-10.4); PLATELET COUNT 246 x10^3/uL (130-400); RED BLOOD COUNT 3.14 x10^6/uL (3.82-5.3); RED CELL DISTRIBUTION WIDTH 18.6 % (9.6-15.2)
[2018-01-18 06:17] LABS: BASOPHILS # (AUTO) 0.03 x10^3/uL (0-0.1); BASOPHILS % (AUTO) 1 % (0-1); EOSINOPHILS # (AUTO) 0.04 x10^3/uL (0-0.4); EOSINOPHILS % (AUTO) 1 % (1-7); LYMPHOCYTES # (AUTO) 0.59 x10^3/uL (1-3.4); LYMPHOCYTES % (AUTO) 10 % (22-44); MD SCAN; MONOCYTES # (AUTO) 0.58 x10^3/uL (0.2-0.8); MONOCYTES % (AUTO) 9 % (2-9); NEUTROPHILS # (AUTO) 4.97 x10^3/uL (1.8-6.8); NEUTROPHILS % (AUTO) 80 % (42-75)
[2018-01-18] MEDS: METOPROLOL TARTRATE 25 MG TABLET PO SCH (06:25)
[2018-01-18] MEDS: ENOXAPARIN 40 MG/0.4 ML SQ SCH (06:26)
[2018-01-18] MEDS: INSULIN REGULAR 100 UNITS/ML, 3ML VIAL SQ-INSULIN SCH ×4 (06:27→21:00)
[2018-01-18 07:08] VITALS: BP 104/68
[2018-01-18] MEDS: LISINOPRIL 5 MG TABLET PO SCH (07:49)
[2018-01-18] MEDS: SENNA/DOCUSATE TABLET PO SCH (07:49)
[2018-01-18] MEDS: FERROUS SULFATE 325 MG TABLET PO SCH ×3 (08:10→21:24)
[2018-01-18] MEDS: metFORMIN 850 MG TABLET PO SCH ×2 (08:10→17:02)
[2018-01-18] MEDS: GABAPENTIN 400 MG CAPSULE PO SCH ×3 (08:10→21:22)
[2018-01-18] MEDS: FAMOTIDINE 20 MG TABLET PO SCH ×2 (08:10→21:22)
[2018-01-18 09:16] LABS: ANION GAP 7 mmol/L (5-15); CALCIUM 8.6 mg/dL (8.5-10.1); CHLORIDE 107 mmol/L (98-107); CREATININE 0.61 mg/dL (0.55-1.02)
[2018-01-18] MEDS ORDERED: FUROSEMIDE 20 MG/2 ML IV ONE (10:00)
[2018-01-18 11:11] LABS: CULTURE INDICATED? YES; MICROSCOPIC INDICATED
[2018-01-18] MEDS ORDERED: ASPIRIN 325 MG TABLET PO ONE (12:30)
[2018-01-18 12:42] VITALS: BP 148/99
[2018-01-18] MEDS ORDERED: OMNIPAQUE 350 MG/ML, 100ML BOTTLE ONE (13:08)
[2018-01-18] MEDS: CEFTRIAXONE PMX 1GM/50ML 50 ML IV SCH (13:27)
[2018-01-18] MEDS ORDERED: SPIRONOLACTONE 25 MG TABLET PO ONE (15:30)
[2018-01-18] MEDS: ALBUTEROL/IPRATROPIUM 2.5MG/0.5MG, 3 ML HHN SCH ×2 (15:30→21:13)
[2018-01-18 18:36] VITALS: BP 102/66
[2018-01-18] MEDS: METOPROLOL SUCCINATE 50 MG TAB.ER.24H PO SCH (21:22)
[2018-01-18] MEDS: ATORVASTATIN 80 MG TABLET PO SCH (21:23)
[2018-01-18] MEDS: PRIMIDONE 50 MG TABLET PO SCH (21:24)
[2018-01-18] MEDS: MELATONIN 5 MG TABLET PO SCH (21:24)
[2018-01-19 02:30] VITALS: BP 94/64
[2018-01-19] MEDS: BACLOFEN 10 MG TABLET PO SCH ×4 (02:55→21:07)
[2018-01-19] MEDS: ALBUTEROL/IPRATROPIUM 2.5MG/0.5MG, 3 ML HHN SCH ×4 (03:22→20:18)
[2018-01-19 05:59] LABS: BASOPHILS # (AUTO) 0.05 x10^3/uL (0-0.1); BASOPHILS % (AUTO) 1 % (0-1); EOSINOPHILS # (AUTO) 0.04 x10^3/uL (0-0.4); EOSINOPHILS % (AUTO) 1 % (1-7); LYMPHOCYTES # (AUTO) 0.68 x10^3/uL (1-3.4); LYMPHOCYTES % (AUTO) 11 % (22-44); MD NO; MEAN CORPUSCULAR HEMOGLOBIN 29.6 pg (27.0-34.8); MEAN CORPUSCULAR HGB CONC 33.1 g/dL (32.4-35.8); MEAN CORPUSCULAR VOLUME 89.4 fL (80-100); MEAN PLATELET VOLUME 10.5 fL (7.4-10.4); MONOCYTES # (AUTO) 0.52 x10^3/uL (0.2-0.8); MONOCYTES % (AUTO) 9 % (2-9); NEUTROPHILS # (AUTO) 4.76 x10^3/uL (1.8-6.8); NEUTROPHILS % (AUTO) 79 % (42-75); PLATELET COUNT 264 x10^3/uL (130-400); RED BLOOD COUNT 3.23 x10^6/uL (3.82-5.3); RED CELL DISTRIBUTION WIDTH 18.6 % (9.6-15.2)
[2018-01-19] MEDS: ENOXAPARIN 40 MG/0.4 ML SQ SCH (06:00)
[2018-01-19 06:55] LABS: ANION GAP 8 mmol/L (5-15); CALCIUM 8.1 mg/dL (8.5-10.1); CHLORIDE 107 mmol/L (98-107); CREATININE 0.81 mg/dL (0.55-1.02)
[2018-01-19 06:56] LABS: % IRON SATURATION 19 % (20-55); ALANINE AMINOTRANSFERASE 21 U/L (12-78); ALBUMIN 2.2 g/dL (3.4-5.0); IRON LEVEL 26 mcg/dL (50-170); TOTAL IRON BINDING CAPACITY 136 mcg/dL (250-450)
[2018-01-19] MEDS: INSULIN REGULAR 100 UNITS/ML, 3ML VIAL SQ-INSULIN SCH ×4 (07:00→19:45)
[2018-01-19 07:03] LABS: ALKALINE PHOSPHATASE 72 U/L (45-117); BILIRUBIN,TOTAL 0.4 mg/dL (0.2-1.0); TOTAL PROTEIN 5.6 g/dL (6.4-8.2)
[2018-01-19 07:13] VITALS: BP 103/71
[2018-01-19] MEDS: LISINOPRIL 5 MG TABLET PO SCH (09:00)
[2018-01-19] MEDS: FAMOTIDINE 20 MG TABLET PO SCH ×2 (09:10→21:07)
[2018-01-19] MEDS: FERROUS SULFATE 325 MG TABLET PO SCH ×3 (09:10→21:07)
[2018-01-19] MEDS: SENNA/DOCUSATE TABLET PO SCH (09:10)
[2018-01-19] MEDS: FUROSEMIDE 20 MG TABLET PO SCH (09:10)
[2018-01-19] MEDS: SPIRONOLACTONE 25 MG TABLET PO SCH (09:11)
[2018-01-19] MEDS: GABAPENTIN 400 MG CAPSULE PO SCH ×3 (09:11→21:07)
[2018-01-19] MEDS: CLOPIDOGREL 75 MG TABLET PO SCH (11:26)
[2018-01-19] MEDS: ASPIRIN 81 MG TABLET EC PO SCH (11:26)
[2018-01-19 12:00] VITALS: BP 99/65
[2018-01-19] MEDS: CEFTRIAXONE PMX 1GM/50ML 50 ML IV SCH (13:17)
[2018-01-19 15:01] VITALS: BP_SYST 100; BP_SYST 107; BP_DIAS 61; BP_DIAS 62
[2018-01-19 20:10] VITALS: BP 97/65
[2018-01-19 21:07] VITALS: BP 105/65
[2018-01-19] MEDS: METOPROLOL SUCCINATE 50 MG TAB.ER.24H PO SCH (21:07)
[2018-01-19] MEDS: ATORVASTATIN 80 MG TABLET PO SCH (21:07)
[2018-01-19] MEDS: MELATONIN 5 MG TABLET PO SCH (21:07)
[2018-01-19] MEDS: PRIMIDONE 50 MG TABLET PO SCH (21:08)
[2018-01-20 02:31] VITALS: BP 103/72
[2018-01-20] MEDS: BACLOFEN 10 MG TABLET PO SCH ×4 (02:35→20:46)
[2018-01-20] MEDS: ALBUTEROL/IPRATROPIUM 2.5MG/0.5MG, 3 ML HHN SCH ×4 (02:42→21:11)
[2018-01-20] MEDS: ASPIRIN 81 MG TABLET EC PO SCH (05:48)
[2018-01-20] MEDS: ENOXAPARIN 40 MG/0.4 ML SQ SCH (05:48)
[2018-01-20 05:53] LABS: MEAN CORPUSCULAR HEMOGLOBIN 30.1 pg (27.0-34.8); MEAN CORPUSCULAR HGB CONC 33.5 g/dL (32.4-35.8); MEAN CORPUSCULAR VOLUME 89.6 fL (80-100); RED BLOOD COUNT 3.02 x10^6/uL (3.82-5.3); RED CELL DISTRIBUTION WIDTH 18.7 % (9.6-15.2)
[2018-01-20 06:10] LABS: BASOPHILS # (AUTO) 0.04 x10^3/uL (0-0.1); BASOPHILS % (AUTO) 1 % (0-1); EOSINOPHILS # (AUTO) 0.06 x10^3/uL (0-0.4); EOSINOPHILS % (AUTO) 1 % (1-7); LYMPHOCYTES # (AUTO) 0.85 x10^3/uL (1-3.4); LYMPHOCYTES % (AUTO) 15 % (22-44); MD SCAN; MEAN PLATELET VOLUME 9.1 fL (7.4-10.4); MONOCYTES # (AUTO) 0.61 x10^3/uL (0.2-0.8); MONOCYTES % (AUTO) 10 % (2-9); NEUTROPHILS # (AUTO) 4.27 x10^3/uL (1.8-6.8); NEUTROPHILS % (AUTO) 73 % (42-75); PLATELET COUNT 250 x10^3/uL (130-400)
[2018-01-20] MEDS: INSULIN REGULAR 100 UNITS/ML, 3ML VIAL SQ-INSULIN SCH ×4 (07:00→20:54)
[2018-01-20 07:22] VITALS: BP 104/71
[2018-01-20] MEDS ORDERED: METO-93 PO (07:23)
[2018-01-20] MEDS ORDERED: SPIR25TA PO (07:23)
[2018-01-20] MEDS ORDERED: CLOP75TA PO (07:23)
[2018-01-20] MEDS ORDERED: ATOR-2 PO (07:30)
[2018-01-20] MEDS: CLOPIDOGREL 75 MG TABLET PO SCH (07:43)
[2018-01-20] MEDS: FERROUS SULFATE 325 MG TABLET PO SCH ×3 (07:43→20:46)
[2018-01-20] MEDS: FAMOTIDINE 20 MG TABLET PO SCH ×2 (07:43→20:46)
[2018-01-20] MEDS: GABAPENTIN 400 MG CAPSULE PO SCH ×3 (07:43→20:46)
[2018-01-20] MEDS: SENNA/DOCUSATE TABLET PO SCH (07:44)
[2018-01-20] MEDS: FUROSEMIDE 20 MG TABLET PO SCH (07:44)
[2018-01-20] MEDS: SPIRONOLACTONE 25 MG TABLET PO SCH (07:44)
[2018-01-20] MEDS: LISINOPRIL 5 MG TABLET PO SCH (07:44)
[2018-01-20] MEDS ORDERED: ASPI-621 PO (09:54)
[2018-01-20] MEDS: CIPROFLOXACIN 500 MG TABLET PO SCH ×2 (11:28→20:46)
[2018-01-20 12:30] VITALS: BP 112/76
[2018-01-20] MEDS: CEFTRIAXONE PMX 1GM/50ML 50 ML IV SCH (13:41)
[2018-01-20 19:46] VITALS: BP 116/79
[2018-01-20] MEDS: MELATONIN 5 MG TABLET PO SCH (20:46)
[2018-01-20] MEDS: PRIMIDONE 50 MG TABLET PO SCH (20:46)
[2018-01-20] MEDS: ATORVASTATIN 80 MG TABLET PO SCH (20:46)
[2018-01-20] MEDS: METOPROLOL SUCCINATE 50 MG TAB.ER.24H PO SCH (20:49)
[2018-01-21 01:45] VITALS: BP 112/72
[2018-01-21] MEDS: BACLOFEN 10 MG TABLET PO SCH ×3 (02:30→14:40)
[2018-01-21] MEDS: ALBUTEROL/IPRATROPIUM 2.5MG/0.5MG, 3 ML HHN SCH ×3 (02:34→15:13)
[2018-01-21] MEDS: ASPIRIN 81 MG TABLET EC PO SCH (05:13)
[2018-01-21] MEDS: ENOXAPARIN 40 MG/0.4 ML SQ SCH (05:13)
[2018-01-21 06:28] LABS: MEAN CORPUSCULAR VOLUME 90.2 fL (80-100); RED BLOOD COUNT 3.17 x10^6/uL (3.82-5.3)
[2018-01-21 06:29] LABS: MD YES; MEAN CORPUSCULAR HEMOGLOBIN 30.5 pg (27.0-34.8); MEAN CORPUSCULAR HGB CONC 33.8 g/dL (32.4-35.8); MEAN PLATELET VOLUME 9.8 fL (7.4-10.4); PLATELET COUNT 329 x10^3/uL (130-400); RED CELL DISTRIBUTION WIDTH 18.7 % (9.6-15.2)
[2018-01-21 06:31] LABS: ANISOCYTOSIS 1+; BAND#(MANUAL) 0.07 x10^3/uL; BANDS%(MANUAL) 1 % (0-7); BASOS#(MANUAL) 0.07 x10^3/uL (0-0.1); BASOS% (MANUAL) 1 % (0-1); LYMPH#(MANUAL) 0.26 x10^3/uL (1-3.4); LYMPHS% (MANUAL) 4 % (22-44); MONOS#(MANUAL) 0.79 x10^3/uL (0.3-2.7); MONOS% (MANUAL) 12 % (2-9); SEG#(MANUAL) 5.41 x10^3/uL (1.8-6.8); SEGS% (MANUAL) 82 % (42-75)
[2018-01-21 06:32] LABS: <PLATELET ESTIMATE> ADEQUATE
[2018-01-21 06:33] LABS: GIANT PLATELETS 1+; LARGE PLATELETS 2+
[2018-01-21 06:34] LABS: POLYCHROMASIA 1+
[2018-01-21 06:46] VITALS: BP 121/83
[2018-01-21] MEDS: INSULIN REGULAR 100 UNITS/ML, 3ML VIAL SQ-INSULIN SCH ×3 (07:00→16:00)
[2018-01-21] MEDS: GABAPENTIN 400 MG CAPSULE PO SCH ×2 (08:32→17:36)
[2018-01-21] MEDS: FERROUS SULFATE 325 MG TABLET PO SCH ×2 (08:32→17:36)
[2018-01-21] MEDS: SPIRONOLACTONE 25 MG TABLET PO SCH (08:32)
[2018-01-21] MEDS: CLOPIDOGREL 75 MG TABLET PO SCH (08:32)
[2018-01-21] MEDS: FAMOTIDINE 20 MG TABLET PO SCH (08:32)
[2018-01-21] MEDS: CIPROFLOXACIN 500 MG TABLET PO SCH (08:33)
[2018-01-21] MEDS: FUROSEMIDE 20 MG TABLET PO SCH (08:33)
[2018-01-21] MEDS: SENNA/DOCUSATE TABLET PO SCH (08:34)
[2018-01-21] MEDS: LISINOPRIL 5 MG TABLET PO SCH (08:34)
[2018-01-21] MEDS: CEFTRIAXONE PMX 1GM/50ML 50 ML IV SCH (12:19)
[2018-01-21 14:06] VITALS: BP 123/76
[2018-02-03] MEDS ORDERED: ATOR-2 PO (21:48)
[2018-02-03] MEDS ORDERED: SPIR25TA5 PO (21:48)
[2018-02-07] MEDS ORDERED: ERGO500017 PO (05:50)
[2018-02-07] MEDS ORDERED: ASPI-621 PO (05:50)
[2018-02-07] MEDS ORDERED: FERR-51 PO (05:50)
[2018-02-07] MEDS ORDERED: DOCU-131 PO (05:50)
[2018-02-07] MEDS ORDERED: TRAM50TA2 PO (05:50)
[2018-02-07] MEDS ORDERED: GABA-827 PO (05:50)
[2018-02-07] MEDS ORDERED: ACET325T14 PO (05:50)
[2018-02-07] MEDS ORDERED: MELA5TAB19 PO (05:50)
[2018-02-07] MEDS ORDERED: POLY17PO5 PO (05:50)
[2018-02-07] MEDS ORDERED: ONDA4TAB13 PO (05:50)
[2018-02-07] MEDS ORDERED: PRIM50TA34 PO (05:50)
[2018-02-07] MEDS ORDERED: BACL-19 PO (05:50)
[2018-02-07] MEDS ORDERED: CLOP75TA PO (05:50)
[2018-02-07] MEDS ORDERED: ATOR-2 PO (05:50)
[2018-02-07] MEDS ORDERED: COLC0.6T37 PO (05:50)
[2018-02-07] MEDS ORDERED: ALLO100T30 PO (05:50)
[2018-02-07] MEDS ORDERED: CALC1TAB68 PO (05:50)
[2018-02-07] MEDS ORDERED: METO25TA2 PO (05:50)
== END 2018-01-21 19:02 | DRG 453 ==
LOC: ORIP 08:49 → 4NOR 18:36 → 5SO 01-18 12:05
PROVIDERS: ADMIT Neurological Surgery; ATTEND Neurological Surgery
PROC: 0SG00AJ Fusion of Lumbar Vertebral Joint with Interbody Fusion Device, Posterior Approach, Anterior Column, Open Approach (ICD-10-PCS; 2018-01-13)
PROC: 4A11X4G Monitoring of Peripheral Nervous Electrical Activity, Intraoperative, External Approach (ICD-10-PCS; 2018-01-13)
PROC: 30233N1 Transfusion of Nonautologous Red Blood Cells into Peripheral Vein, Percutaneous Approach (ICD-10-PCS; 2018-01-13)
PROC: 0SG0071 Fusion of Lumbar Vertebral Joint with Autologous Tissue Substitute, Posterior Approach, Posterior Column, Open Approach (ICD-10-PCS; principal; 2018-01-13 11:00)
PROC: 0T9B70Z Drainage of Bladder with Drainage Device, Via Natural or Artificial Opening (ICD-10-PCS; 2018-01-18)
DX: M48.061 Spinal stenosis, lumbar region without neurogenic claudication (principal); I50.43 Acute on chronic combined systolic (congestive) and diastolic (congestive) heart failure; I24.9 Acute ischemic heart disease, unspecified; I50.40 Unspecified combined systolic (congestive) and diastolic (congestive) heart failure; D62 Acute posthemorrhagic anemia; I42.9 Cardiomyopathy, unspecified; I13.0 Hypertensive heart and chronic kidney disease with heart failure and stage 1 through stage 4 chronic kidney disease, or unspecified chronic kidney disease; N39.0 Urinary tract infection, site not specified; M43.16 Spondylolisthesis, lumbar region; N18.3 Chronic kidney disease, stage 3 (moderate); J44.9 Chronic obstructive pulmonary disease, unspecified; K21.9 Gastro-esophageal reflux disease without esophagitis; I08.0 Rheumatic disorders of both mitral and aortic valves; E11.22 Type 2 diabetes mellitus with diabetic chronic kidney disease; E78.5 Hyperlipidemia, unspecified; E11.51 Type 2 diabetes mellitus with diabetic peripheral angiopathy without gangrene; E11.42 Type 2 diabetes mellitus with diabetic polyneuropathy; I25.10 Atherosclerotic heart disease of native coronary artery without angina pectoris; I25.2 Old myocardial infarction; M21.372 Foot drop, left foot; M48.02 Spinal stenosis, cervical region; M51.16 Intervertebral disc disorders with radiculopathy, lumbar region; M81.0 Age-related osteoporosis without current pathological fracture; L90.5 Scar conditions and fibrosis of skin; Z87.891 Personal history of nicotine dependence; Z95.5 Presence of coronary angioplasty implant and graft; Z88.0 Allergy status to penicillin; Z88.5 Allergy status to narcotic agent; Z98.1 Arthrodesis status; Z79.82 Long term (current) use of aspirin
CPT/HCPCS: 36415; 71045; 71275; 72100; 80048; 80053; 81001; 82962; 83540; 83550; 83735; 84100; 84484; 85025; 85610; 86850; 86900; 86923; 87086; 87324; 93005; 93306; 94640; C1713; G0378; J0690; J0696; J1650; J1815; J2250; J2405; J2704; J3010; J3370; J3490; J7620; Q9967; C1762; J0330; J0780; J1940; J7050; J7120; P9016

== ENCOUNTER 2018-01-24 18:58 | Inpatient (IN) | payer MEDICARE, MEDICAID ==
[~2018-01-24] VITALS: Ht 162.6 cm; Wt 68.5 kg
[~2018-01-24 18:58] MED LIST changes: +ATOR-2 PO; +METO-93 PO; +SPIR25TA PO
[2018-01-24] MEDS ORDERED: SODIUM CHLORIDE 0.9% 1,000ML IVBOLUS ONE (19:30)
[2018-01-24 19:48] LABS: ALANINE AMINOTRANSFERASE 20 U/L (12-78); ALBUMIN 2.6 g/dL (3.4-5.0); ANION GAP 7 mmol/L (5-15); CALCIUM 7.7 mg/dL (8.5-10.1); CHLORIDE 108 mmol/L (98-107); CREATININE 0.81 mg/dL (0.55-1.02)
[2018-01-24 19:52] LABS: ALKALINE PHOSPHATASE 67 U/L (45-117); BILIRUBIN,TOTAL 0.6 mg/dL (0.2-1.0); TOTAL PROTEIN 5.9 g/dL (6.4-8.2); TROPONIN I 0.118 ng/mL (0.000-0.045)
[2018-01-24 20:05] LABS: BASOPHILS # (AUTO) 0.04 x10^3/uL (0-0.1); BASOPHILS % (AUTO) 0 % (0-1); EOSINOPHILS # (AUTO) 0.04 x10^3/uL (0-0.4); EOSINOPHILS % (AUTO) 0 % (1-7); LYMPHOCYTES # (AUTO) 1.18 x10^3/uL (1-3.4); LYMPHOCYTES % (AUTO) 13 % (22-44); MD MORPH REVIEW ONLY; MEAN CORPUSCULAR HEMOGLOBIN 29.7 pg (27.0-34.8); MEAN CORPUSCULAR HGB CONC 33.3 g/dL (32.4-35.8); MEAN CORPUSCULAR VOLUME 89.3 fL (80-100); MEAN PLATELET VOLUME 9.6 fL (7.4-10.4); MONOCYTES # (AUTO) 0.96 x10^3/uL (0.2-0.8); MONOCYTES % (AUTO) 10 % (2-9); NEUTROPHILS # (AUTO) 7.25 x10^3/uL (1.8-6.8); NEUTROPHILS % (AUTO) 77 % (42-75); PLATELET COUNT 480 x10^3/uL (130-400); RED BLOOD COUNT 3.18 x10^6/uL (3.82-5.3); RED CELL DISTRIBUTION WIDTH 18.4 % (9.6-15.2)
[2018-01-24 20:06] LABS: <PLATELET ESTIMATE> INCREASED; ANISOCYTOSIS 1+; GIANT PLATELETS 1+; POLYCHROMASIA 1+
[2018-01-24] MEDS ORDERED: SIMV40TA3 PO (20:14)
[2018-01-24 20:21] LABS: CULTURE INDICATED? YES; MICROSCOPIC INDICATED
[2018-01-24] MEDS ORDERED: ASPIRIN 81 MG TABLET CHEW ONE (20:25)
[2018-01-24] MEDS ORDERED: ASPIRIN 81 MG TABLET CHEW PO ONE (20:30)
[2018-01-24] MEDS ORDERED: OMNIPAQUE 350 MG/ML, 100ML BOTTLE ONE (20:30)
[2018-01-24] MEDS ORDERED: BACLOFEN 10 MG TABLET PO PRN (21:00)
[2018-01-24] MEDS: PRIMIDONE 50 MG TABLET PO SCH (21:00)
[2018-01-24] MEDS ORDERED: ONDANSETRON 2MG/ML, 2ML IVPush PRN (21:00)
[2018-01-24] MEDS ORDERED: BISACODYL 10 MG SUPP PR PRN (21:00)
[2018-01-24] MEDS ORDERED: morphine SULFATE 10 MG/ML, 1ML IVPush PRN (21:00)
[2018-01-24] MEDS ORDERED: ONDANSETRON ODT 4 MG PO PRN (21:00)
[2018-01-24] MEDS ORDERED: PROMETHAZINE 25 MG/ML, 1ML IM PRN (21:00)
[2018-01-24] MEDS ORDERED: LABETALOL 5MG/ML, 20ML IVPush PRN (21:00)
[2018-01-24] MEDS ORDERED: hydrOXyzine 50MG TABLET PO PRN (21:00)
[2018-01-24] MEDS ORDERED: ACETAMINOPHEN 325 MG TABLET PO PRN (21:00)
[2018-01-24] MEDS ORDERED: hydrALAzine 20 MG/ML, 1ML IVPush PRN (21:00)
[2018-01-24 21:27] LABS: FREE T4 (FREE THYROXINE) 1.31 ng/dL (0.76-1.46); THYROID STIMULATING HORMONE 4.05 mIU/L (0.358-3.740)
[2018-01-24] MEDS ORDERED: FUROSEMIDE 20 MG/2 ML IV SCH (21:30)
[2018-01-24 21:31] LABS: HEMOGLOBIN A1C 5.4 % (4.2-6.3)
[2018-01-24] MEDS ORDERED: ALBUTEROL/IPRATROPIUM 2.5MG/0.5MG, 3 ML ONE (21:40)
[2018-01-24 22:15] VITALS: BP 97/65
[2018-01-24] MEDS ORDERED: ALBUTEROL SULFATE 2.5 MG/3 ML NPPB PRN (22:30)
[2018-01-24] MEDS ORDERED: PRIMIDONE 250 MG TABLET ONE (23:16)
[2018-01-24] MEDS: HEPARIN 5,000 UNITS/ML, 1ML SQ SCH (23:23)
[2018-01-24] MEDS: CALCIUM/VITAMIN D3 250-125 TABLET PO SCH (23:24)
[2018-01-24] MEDS: SIMVASTATIN 40 MG TABLET PO SCH (23:24)
[2018-01-24] MEDS: MELATONIN 5 MG TABLET PO SCH (23:24)
[2018-01-24] MEDS: ERGOCALCIFEROL 50,000 UNIT CAPSULE PO SCH (23:24)
[2018-01-24] MEDS: METOPROLOL SUCCINATE 50 MG TAB.ER.24H PO SCH (23:25)
[2018-01-24] MEDS: DIPHENHYDRAMINE 25 MG CAPSULE PO SCH (23:25)
[2018-01-24] MEDS: metFORMIN 850 MG TABLET PO SCH (23:25)
[2018-01-24] MEDS: FERROUS SULFATE 325 MG TABLET PO SCH (23:25)
[2018-01-24] MEDS: GABAPENTIN 400 MG CAPSULE PO SCH (23:25)
[2018-01-25 01:50] VITALS: BP 92/61
[2018-01-25 05:53] LABS: MEAN CORPUSCULAR HEMOGLOBIN 29.9 pg (27.0-34.8); MEAN CORPUSCULAR HGB CONC 33.4 g/dL (32.4-35.8); MEAN CORPUSCULAR VOLUME 89.5 fL (80-100); MEAN PLATELET VOLUME 9.7 fL (7.4-10.4); PLATELET COUNT 426 x10^3/uL (130-400); RED BLOOD COUNT 3.08 x10^6/uL (3.82-5.3); RED CELL DISTRIBUTION WIDTH 18.5 % (9.6-15.2)
[2018-01-25 06:02] LABS: CHLORIDE 108 mmol/L (98-107)
[2018-01-25 06:11] LABS: ALANINE AMINOTRANSFERASE 20 U/L (12-78); ALBUMIN 2.4 g/dL (3.4-5.0); ALKALINE PHOSPHATASE 73 U/L (45-117); ANION GAP 11 mmol/L (5-15); BILIRUBIN,TOTAL 0.4 mg/dL (0.2-1.0); CALCIUM 8.1 mg/dL (8.5-10.1); CHOL/HDL RATIO 3.1; CHOLESTEROL, TOTAL 72 mg/dL (140-239); CREATININE 0.89 mg/dL (0.55-1.02); HDL CHOL % 32 % (28-40); HDL CHOLESTEROL (DIRECT) 23 mg/dL (40-60); LDL CHOLESTEROL,CALCULATED 26 mg/dL (54-169); LDL/HDL RATIO 1.1 (0.5-3.0); TOTAL PROTEIN 5.9 g/dL (6.4-8.2); TRIGLYCERIDES 117 mg/dL (50-200); VLDL CHOLESTEROL 23 mg/dL (0-25)
[2018-01-25 06:13] LABS: BASOPHILS # (AUTO) 0.05 x10^3/uL (0-0.1); BASOPHILS % (AUTO) 1 % (0-1); EOSINOPHILS # (AUTO) 0.06 x10^3/uL (0-0.4); EOSINOPHILS % (AUTO) 1 % (1-7); LYMPHOCYTES # (AUTO) 1.03 x10^3/uL (1-3.4); LYMPHOCYTES % (AUTO) 12 % (22-44); MD SCAN; MONOCYTES # (AUTO) 0.82 x10^3/uL (0.2-0.8); MONOCYTES % (AUTO) 10 % (2-9); NEUTROPHILS # (AUTO) 6.45 x10^3/uL (1.8-6.8); NEUTROPHILS % (AUTO) 77 % (42-75)
[2018-01-25 08:03] VITALS: BP 97/63
[2018-01-25] MEDS: GABAPENTIN 400 MG CAPSULE PO SCH ×3 (08:38→21:21)
[2018-01-25] MEDS: FUROSEMIDE 20 MG/2 ML IV SCH ×2 (08:38→21:20)
[2018-01-25] MEDS: FERROUS SULFATE 325 MG TABLET PO SCH ×3 (08:38→21:20)
[2018-01-25] MEDS: CALCIUM/VITAMIN D3 250-125 TABLET PO SCH ×2 (08:38→21:21)
[2018-01-25] MEDS: HEPARIN 5,000 UNITS/ML, 1ML SQ SCH ×2 (08:38→16:20)
[2018-01-25] MEDS: metFORMIN 850 MG TABLET PO SCH ×2 (08:38→21:20)
[2018-01-25] MEDS: ASPIRIN 81 MG TABLET EC PO SCH (10:01)
[2018-01-25] MEDS: CLOPIDOGREL 75 MG TABLET PO SCH (10:01)
[2018-01-25 13:15] VITALS: BP 109/71
[2018-01-25 20:51] VITALS: BP 92/60
[2018-01-25] MEDS ORDERED: PRIMIDONE 250 MG TABLET ONE (20:56)
[2018-01-25] MEDS: PRIMIDONE 50 MG TABLET PO SCH (21:00)
[2018-01-25] MEDS: METOPROLOL SUCCINATE 50 MG TAB.ER.24H PO SCH (21:00)
[2018-01-25] MEDS: SIMVASTATIN 40 MG TABLET PO SCH (21:20)
[2018-01-25] MEDS: DIPHENHYDRAMINE 25 MG CAPSULE PO SCH (21:20)
[2018-01-25] MEDS: MELATONIN 5 MG TABLET PO SCH (21:20)
[2018-01-26 02:02] VITALS: BP 107/72
[2018-01-26] MEDS ORDERED: SODIUM CHLORIDE 0.9% 1,000 ML IV ONE ×2 (07:53→08:00)
[2018-01-26] MEDS: ASPIRIN 81 MG TABLET EC PO SCH (08:22)
[2018-01-26] MEDS: GABAPENTIN 400 MG CAPSULE PO SCH ×3 (08:22→21:34)
[2018-01-26] MEDS: HEPARIN 5,000 UNITS/ML, 1ML SQ SCH ×3 (08:23→16:48)
[2018-01-26] MEDS: CALCIUM/VITAMIN D3 250-125 TABLET PO SCH ×2 (08:23→21:34)
[2018-01-26] MEDS: FUROSEMIDE 20 MG/2 ML IV SCH (08:23)
[2018-01-26] MEDS: CLOPIDOGREL 75 MG TABLET PO SCH (08:23)
[2018-01-26] MEDS: FERROUS SULFATE 325 MG TABLET PO SCH ×3 (08:24→21:34)
[2018-01-26 08:42] VITALS: BP 99/63
[2018-01-26] MEDS ORDERED: VERAPAMIL 2.5 MG/ML, 2ML ONE (13:05)
[2018-01-26] MEDS ORDERED: MIDAZOLAM 1 MG/ML, 2ML ONE (13:05)
[2018-01-26] MEDS ORDERED: FENTANYL PF 100 MCG/2ML ONE (13:05)
[2018-01-26] MEDS ORDERED: HEPARIN 1,000 UNITS/ML, 10ML ONE (13:05)
[2018-01-26] MEDS ORDERED: LIDOCAINE-MPF 1%, 5ML ONE (13:06)
[2018-01-26 14:35] VITALS: BP 111/57
[2018-01-26 16:47] VITALS: BP 93/61
[2018-01-26] MEDS: FUROSEMIDE 20 MG TABLET PO SCH (17:09)
[2018-01-26 19:04] VITALS: BP 101/67
[2018-01-26] MEDS: DIPHENHYDRAMINE 25 MG CAPSULE PO SCH (21:34)
[2018-01-26] MEDS: METOPROLOL SUCCINATE 50 MG TAB.ER.24H PO SCH (21:34)
[2018-01-26] MEDS: MELATONIN 5 MG TABLET PO SCH (21:34)
[2018-01-26] MEDS: SIMVASTATIN 40 MG TABLET PO SCH (21:34)
[2018-01-26] MEDS: PRIMIDONE 50 MG TABLET PO SCH (21:34)
[2018-01-27] MEDS: HEPARIN 5,000 UNITS/ML, 1ML SQ SCH ×3 (00:32→16:30)
[2018-01-27 02:10] VITALS: BP 102/69
[2018-01-27] MEDS: ASPIRIN 81 MG TABLET EC PO SCH (05:36)
[2018-01-27 06:52] VITALS: BP 115/74
[2018-01-27] MEDS: FUROSEMIDE 20 MG TABLET PO SCH ×2 (09:31→16:30)
[2018-01-27] MEDS: FERROUS SULFATE 325 MG TABLET PO SCH ×3 (09:31→20:26)
[2018-01-27] MEDS: GABAPENTIN 400 MG CAPSULE PO SCH ×3 (09:31→20:25)
[2018-01-27] MEDS: CLOPIDOGREL 75 MG TABLET PO SCH (09:31)
[2018-01-27] MEDS: CALCIUM/VITAMIN D3 250-125 TABLET PO SCH ×2 (09:32→20:26)
[2018-01-27 14:04] VITALS: BP 102/62
[2018-01-27 20:19] VITALS: BP 120/70
[2018-01-27] MEDS: DIPHENHYDRAMINE 25 MG CAPSULE PO SCH (20:25)
[2018-01-27] MEDS: SIMVASTATIN 40 MG TABLET PO SCH (20:26)
[2018-01-27] MEDS: METOPROLOL SUCCINATE 50 MG TAB.ER.24H PO SCH (20:26)
[2018-01-27] MEDS: MELATONIN 5 MG TABLET PO SCH (20:26)
[2018-01-27] MEDS: PRIMIDONE 50 MG TABLET PO SCH (20:26)
[2018-01-28 00:49] VITALS: BP 102/61
[2018-01-28] MEDS: HEPARIN 5,000 UNITS/ML, 1ML SQ SCH ×3 (00:49→16:00)
[2018-01-28 03:15] VITALS: BP 114/72
[2018-01-28] MEDS: ASPIRIN 81 MG TABLET EC PO SCH (05:45)
[2018-01-28 07:18] VITALS: BP 110/68
[2018-01-28] MEDS: CLOPIDOGREL 75 MG TABLET PO SCH (09:19)
[2018-01-28] MEDS: GABAPENTIN 400 MG CAPSULE PO SCH ×3 (09:19→21:17)
[2018-01-28] MEDS: CALCIUM/VITAMIN D3 250-125 TABLET PO SCH ×2 (09:19→21:17)
[2018-01-28] MEDS: FUROSEMIDE 20 MG TABLET PO SCH ×2 (09:19→16:25)
[2018-01-28] MEDS: FERROUS SULFATE 325 MG TABLET PO SCH ×3 (09:19→21:17)
[2018-01-28] MEDS ORDERED: ASPI-621 PO (11:54)
[2018-01-28] MEDS ORDERED: FURO20TA3 PO (11:54)
[2018-01-28] MEDS ORDERED: MAGNESIUM SULFATE PMX 2GM/50ML 50 ML IV ONE (12:30)
[2018-01-28 12:48] VITALS: BP 114/75
[2018-01-28 18:26] VITALS: BP 111/72
[2018-01-28] MEDS: METOPROLOL SUCCINATE 50 MG TAB.ER.24H PO SCH (21:16)
[2018-01-28] MEDS: SIMVASTATIN 40 MG TABLET PO SCH (21:17)
[2018-01-28] MEDS: MELATONIN 5 MG TABLET PO SCH (21:17)
[2018-01-28] MEDS: PRIMIDONE 50 MG TABLET PO SCH (21:17)
[2018-01-28] MEDS: DIPHENHYDRAMINE 25 MG CAPSULE PO SCH (21:17)
[2018-01-29] MEDS: HEPARIN 5,000 UNITS/ML, 1ML SQ SCH ×3 (00:21→16:57)
[2018-01-29 00:42] VITALS: BP 105/69
[2018-01-29] MEDS: ASPIRIN 81 MG TABLET EC PO SCH (06:08)
[2018-01-29 06:34] VITALS: BP 103/69
[2018-01-29 08:58] LABS: ALBUMIN 2.8 g/dL (3.4-5.0); ANION GAP 8 mmol/L (5-15); CALCIUM 8.4 mg/dL (8.5-10.1); CHLORIDE 100 mmol/L (98-107); CREATININE 0.73 mg/dL (0.55-1.02)
[2018-01-29] MEDS: FUROSEMIDE 20 MG TABLET PO SCH ×2 (09:00→16:57)
[2018-01-29] MEDS: GABAPENTIN 400 MG CAPSULE PO SCH ×3 (09:00→20:31)
[2018-01-29] MEDS: CALCIUM/VITAMIN D3 250-125 TABLET PO SCH ×2 (09:00→20:31)
[2018-01-29] MEDS: CLOPIDOGREL 75 MG TABLET PO SCH (09:00)
[2018-01-29] MEDS: FERROUS SULFATE 325 MG TABLET PO SCH ×3 (09:00→20:31)
[2018-01-29 09:03] LABS: MEAN PLATELET VOLUME 9.4 fL (7.4-10.4); PLATELET COUNT 573 x10^3/uL (130-400); RED BLOOD COUNT 3.29 x10^6/uL (3.82-5.3); RED CELL DISTRIBUTION WIDTH 18.3 % (9.6-15.2)
[2018-01-29 09:04] LABS: BASOPHILS # (AUTO) 0.04 x10^3/uL (0-0.1); BASOPHILS % (AUTO) 1 % (0-1); EOSINOPHILS # (AUTO) 0.05 x10^3/uL (0-0.4); EOSINOPHILS % (AUTO) 1 % (1-7); LYMPHOCYTES % (AUTO) 12 % (22-44); MD SCAN; MONOCYTES # (AUTO) 0.55 x10^3/uL (0.2-0.8); MONOCYTES % (AUTO) 8 % (2-9); NEUTROPHILS % (AUTO) 79 % (42-75)
[2018-01-29 12:32] VITALS: BP 105/71
[2018-01-29] MEDS: DOCUSATE 100 MG CAPSULE PO PRN (13:21)
[2018-01-29 20:01] VITALS: BP 123/75
[2018-01-29] MEDS: DIPHENHYDRAMINE 25 MG CAPSULE PO SCH (20:31)
[2018-01-29] MEDS: PRIMIDONE 50 MG TABLET PO SCH (20:31)
[2018-01-29] MEDS: MELATONIN 5 MG TABLET PO SCH (20:31)
[2018-01-29] MEDS: SIMVASTATIN 40 MG TABLET PO SCH (20:32)
[2018-01-29] MEDS: METOPROLOL SUCCINATE 50 MG TAB.ER.24H PO SCH (20:32)
[2018-01-30 00:53] VITALS: BP 108/69
[2018-01-30] MEDS: HEPARIN 5,000 UNITS/ML, 1ML SQ SCH ×3 (01:07→18:02)
[2018-01-30] MEDS: DOCUSATE 100 MG CAPSULE PO PRN (05:31)
[2018-01-30] MEDS: ASPIRIN 81 MG TABLET EC PO SCH (05:31)
[2018-01-30 07:44] VITALS: BP 144/72
[2018-01-30] MEDS: CLOPIDOGREL 75 MG TABLET PO SCH (08:20)
[2018-01-30] MEDS: CALCIUM/VITAMIN D3 250-125 TABLET PO SCH ×2 (08:20→21:00)
[2018-01-30] MEDS: GABAPENTIN 400 MG CAPSULE PO SCH ×3 (08:20→21:00)
[2018-01-30] MEDS: FERROUS SULFATE 325 MG TABLET PO SCH ×3 (08:20→21:00)
[2018-01-30] MEDS: FUROSEMIDE 20 MG TABLET PO SCH ×2 (08:21→17:00)
[2018-01-30 12:07] VITALS: BP 106/62
[2018-01-30] MEDS: POLYETHYLENE GLYCOL 17 GM PACKET PO PRN (16:13)
[2018-01-30 20:00] VITALS: BP 117/71
[2018-01-30] MEDS: DIPHENHYDRAMINE 25 MG CAPSULE PO SCH (20:58)
[2018-01-30] MEDS: MELATONIN 5 MG TABLET PO SCH (20:59)
[2018-01-30] MEDS: SIMVASTATIN 40 MG TABLET PO SCH (20:59)
[2018-01-30] MEDS: PRIMIDONE 50 MG TABLET PO SCH (20:59)
[2018-01-30] MEDS: METOPROLOL SUCCINATE 50 MG TAB.ER.24H PO SCH (21:00)
[2018-01-31] MEDS: HEPARIN 5,000 UNITS/ML, 1ML SQ SCH ×4 (00:56→22:06)
[2018-01-31 01:19] VITALS: BP 97/61
[2018-01-31 05:31] LABS: ANION GAP 8 mmol/L (5-15); CALCIUM 8.6 mg/dL (8.5-10.1); CHLORIDE 103 mmol/L (98-107)
[2018-01-31 05:35] LABS: ALANINE AMINOTRANSFERASE 18 U/L (12-78); ALKALINE PHOSPHATASE 72 U/L (45-117); BILIRUBIN,TOTAL 0.3 mg/dL (0.2-1.0); CREATININE 0.83 mg/dL (0.55-1.02); TOTAL PROTEIN 6.3 g/dL (6.4-8.2)
[2018-01-31 05:44] LABS: BASOPHILS # (AUTO) 0.06 x10^3/uL (0-0.1); BASOPHILS % (AUTO) 1 % (0-1); EOSINOPHILS # (AUTO) 0.09 x10^3/uL (0-0.4); EOSINOPHILS % (AUTO) 2 % (1-7); LYMPHOCYTES # (AUTO) 1.13 x10^3/uL (1-3.4); LYMPHOCYTES % (AUTO) 18 % (22-44); MD SCAN; MEAN CORPUSCULAR HEMOGLOBIN 28.7 pg (27.0-34.8); MEAN CORPUSCULAR HGB CONC 32.7 g/dL (32.4-35.8); MEAN CORPUSCULAR VOLUME 87.6 fL (80-100); MEAN PLATELET VOLUME 10.1 fL (7.4-10.4); MONOCYTES # (AUTO) 0.62 x10^3/uL (0.2-0.8); MONOCYTES % (AUTO) 10 % (2-9); NEUTROPHILS # (AUTO) 4.44 x10^3/uL (1.8-6.8); NEUTROPHILS % (AUTO) 70 % (42-75); PLATELET COUNT 487 x10^3/uL (130-400); RED BLOOD COUNT 3.14 x10^6/uL (3.82-5.3); RED CELL DISTRIBUTION WIDTH 19.4 % (9.6-15.2)
[2018-01-31 05:54] LABS: ALBUMIN 2.8 g/dL (3.4-5.0)
[2018-01-31] MEDS: ASPIRIN 81 MG TABLET EC PO SCH (05:57)
[2018-01-31 06:33] VITALS: BP 102/65
[2018-01-31] MEDS: FUROSEMIDE 20 MG TABLET PO SCH ×2 (08:00→17:00)
[2018-01-31] MEDS: GABAPENTIN 400 MG CAPSULE PO SCH ×3 (08:54→22:06)
[2018-01-31] MEDS: CLOPIDOGREL 75 MG TABLET PO SCH (08:54)
[2018-01-31] MEDS: FERROUS SULFATE 325 MG TABLET PO SCH ×3 (08:55→22:06)
[2018-01-31] MEDS: CALCIUM/VITAMIN D3 250-125 TABLET PO SCH ×2 (08:55→22:05)
[2018-01-31] MEDS: POLYETHYLENE GLYCOL 17 GM PACKET PO PRN (08:56)
[2018-01-31] MEDS: DOCUSATE 100 MG CAPSULE PO PRN (08:56)
[2018-01-31 13:10] VITALS: BP 114/71
[2018-01-31 20:00] VITALS: BP 131/22
[2018-01-31] MEDS: DIPHENHYDRAMINE 25 MG CAPSULE PO SCH (22:05)
[2018-01-31] MEDS: ERGOCALCIFEROL 50,000 UNIT CAPSULE PO SCH (22:05)
[2018-01-31] MEDS: SIMVASTATIN 40 MG TABLET PO SCH (22:06)
[2018-01-31] MEDS: MELATONIN 5 MG TABLET PO SCH (22:06)
[2018-01-31] MEDS: PRIMIDONE 50 MG TABLET PO SCH (22:06)
[2018-01-31] MEDS: METOPROLOL SUCCINATE 50 MG TAB.ER.24H PO SCH (22:07)
[2018-02-01 02:00] VITALS: BP 100/63
[2018-02-01] MEDS: ASPIRIN 81 MG TABLET EC PO SCH (05:17)
[2018-02-01] MEDS: HEPARIN 5,000 UNITS/ML, 1ML SQ SCH ×2 (05:17→15:06)
[2018-02-01 06:42] VITALS: BP 107/67
[2018-02-01] MEDS ORDERED: CLOP75TA PO (09:57)
[2018-02-01] MEDS: GABAPENTIN 400 MG CAPSULE PO SCH ×2 (10:07→17:03)
[2018-02-01] MEDS: CLOPIDOGREL 75 MG TABLET PO SCH (10:07)
[2018-02-01] MEDS: CALCIUM/VITAMIN D3 250-125 TABLET PO SCH (10:08)
[2018-02-01] MEDS: FERROUS SULFATE 325 MG TABLET PO SCH ×2 (10:08→17:03)
[2018-02-01] MEDS: FUROSEMIDE 20 MG TABLET PO SCH ×2 (10:08→17:03)
[2018-02-01 15:08] VITALS: BP 98/65
[2018-02-03] MEDS ORDERED: ATOR-2 PO (21:48)
[2018-02-03] MEDS ORDERED: SPIR25TA5 PO (21:48)
[2018-02-07] MEDS ORDERED: METO25TA2 PO (05:50)
[2018-02-07] MEDS ORDERED: ONDA4TAB13 PO (05:50)
[2018-02-07] MEDS ORDERED: ATOR-2 PO (05:50)
[2018-02-07] MEDS ORDERED: CALC1TAB68 PO (05:50)
[2018-02-07] MEDS ORDERED: ALLO100T30 PO (05:50)
[2018-02-07] MEDS ORDERED: FERR-51 PO (05:50)
[2018-02-07] MEDS ORDERED: POLY17PO5 PO (05:50)
[2018-02-07] MEDS ORDERED: TRAM50TA2 PO (05:50)
[2018-02-07] MEDS ORDERED: COLC0.6T37 PO (05:50)
[2018-02-07] MEDS ORDERED: CLOP75TA PO (05:50)
[2018-02-07] MEDS ORDERED: DOCU-131 PO (05:50)
[2018-02-07] MEDS ORDERED: ERGO500017 PO (05:50)
[2018-02-07] MEDS ORDERED: MELA5TAB19 PO (05:50)
[2018-02-07] MEDS ORDERED: GABA-827 PO (05:50)
[2018-02-07] MEDS ORDERED: BACL-19 PO (05:50)
[2018-02-07] MEDS ORDERED: PRIM50TA34 PO (05:50)
[2018-02-07] MEDS ORDERED: ASPI-621 PO (05:50)
[2018-02-07] MEDS ORDERED: ACET325T14 PO (05:50)
== END 2018-02-01 18:04 | disposition left against medical advice (07) | DRG 286 ==
LOC: ED 20:21 → EDIP 21:05 → 5SO 22:11
PROVIDERS: ADMIT Internal Medicine; ATTEND Internal Medicine
PROC: 0T9B70Z Drainage of Bladder with Drainage Device, Via Natural or Artificial Opening (ICD-10-PCS; 2018-01-24)
PROC: 4A023N8 Measurement of Cardiac Sampling and Pressure, Bilateral, Percutaneous Approach (ICD-10-PCS; principal; 2018-01-26)
PROC: B2111ZZ Fluoroscopy of Multiple Coronary Arteries using Low Osmolar Contrast (ICD-10-PCS; 2018-01-26)
DX: I25.10 Atherosclerotic heart disease of native coronary artery without angina pectoris (principal); E43 Unspecified severe protein-calorie malnutrition; I50.21 Acute systolic (congestive) heart failure; K92.2 Gastrointestinal hemorrhage, unspecified; I42.9 Cardiomyopathy, unspecified; I35.0 Nonrheumatic aortic (valve) stenosis; D64.9 Anemia, unspecified; E11.51 Type 2 diabetes mellitus with diabetic peripheral angiopathy without gangrene; E78.5 Hyperlipidemia, unspecified; F17.210 Nicotine dependence, cigarettes, uncomplicated; I11.0 Hypertensive heart disease with heart failure; I25.5 Ischemic cardiomyopathy; J44.9 Chronic obstructive pulmonary disease, unspecified; K21.9 Gastro-esophageal reflux disease without esophagitis; Z79.84 Long term (current) use of oral hypoglycemic drugs; Z95.5 Presence of coronary angioplasty implant and graft; I25.2 Old myocardial infarction; Z79.82 Long term (current) use of aspirin; Z68.25 Body mass index [BMI] 25.0-25.9, adult; Z90.49 Acquired absence of other specified parts of digestive tract; Z79.899 Other long term (current) drug therapy
CPT/HCPCS: 36415; 71045; 71275; 80048; 80053; 80061; 81001; 82040; 82962; 83036; 83605; 83735; 83880; 84100; 84439; 84443; 84484; 85014; 85018; 85025; 87086; 93005; 93460; 94640; 99156; 99285; C1769; C1894; G0378; J1644; J2250; J2405; J3010; Q9967; J1940; J3475; J7030; Q0163

== ENCOUNTER → 2018-04-06 | Outpatient (CLI) | payer MEDICARE, MEDICAID ==
[~2018-04-06] MED LIST changes: +ALLO100T30 PO; -ASPI-621 PO; +ASPI81TA45 PO; +CALC1TAB68 PO; +COLC0.6T37 PO; +DOCU-131 PO; +FERR-51 PO; +FURO20TA3 PO; +METO25TA2 PO; +ONDA4TAB13 PO; +POLY17PO5 PO; +PRIM50TA34 PO; +SPIR25TA5 PO; +TRAM50TA2 PO
== END | disposition home or self-care (01) ==
LOC: CFH 13:44
PROVIDERS: ATTEND Nurse Practitioner Primary Care
DX: R22.43 Localized swelling, mass and lump, lower limb, bilateral (principal)

== ENCOUNTER → 2019-03-04 | Outpatient (CLI) | payer MEDICARE, MEDICAID ==
[~2019-03-04] MED LIST changes: +MELA5TAB14 PO; -MELA5TAB19 PO; +PANT40TA5 PO
== END | disposition home or self-care (01) ==
LOC: CFH 08:48
PROVIDERS: ATTEND Internal Medicine Cardiovascular Disease
DX: I08.0 Rheumatic disorders of both mitral and aortic valves (principal); I25.2 Old myocardial infarction; I10 Essential (primary) hypertension; E78.5 Hyperlipidemia, unspecified; Z95.818 Presence of other cardiac implants and grafts
CPT/HCPCS: 93308

== ENCOUNTER → 2020-05-14 | Outpatient (CLI) | payer MEDICARE, MEDICAID ==
[~2020-05-14] MED LIST changes: -HYDR50TA13 PO; +HYDR50TA99 PO; +METH-640 PO; -METH750T2 PO; -PANT40TA5 PO; +PANT40TA6 PO; +SIMV40TA20 PO; -SIMV40TA3 PO
== END | disposition home or self-care (01) ==
LOC: CFH 07:46
PROVIDERS: ATTEND Internal Medicine Cardiovascular Disease
DX: I08.8 Other rheumatic multiple valve diseases (principal); I11.9 Hypertensive heart disease without heart failure; I27.20 Pulmonary hypertension, unspecified
CPT/HCPCS: 93306

== ENCOUNTER 2020-06-27 07:27 | Emergency (ER) | payer MEDICARE, MEDICAID ==
[~2020-06-27] VITALS: Ht 160 cm; Wt 64.6 kg
[2020-06-27] MEDS ORDERED: HYDROcodone/APAP 5/325 TABLET ONE (07:50)
--- NOTE | 2020-06-27 07:53 | NUR ---
PT TO XRAY
[2020-06-27] MEDS ORDERED: HYDROcodone/APAP 5/325 TABLET PO ONE (08:00)
[2020-06-27] MEDS ORDERED: LIDOCAINE-MPF 1%, 5ML ONE (08:32)
[2020-06-27 08:49] VITALS: BP 119/49
--- NOTE | 2020-06-27 09:02 | NUR ---
Patient given discharge instructions and they have confirmed that they understand the instructions. Patient ambulatory with steady gait.
== END 2020-06-27 09:04 | disposition home or self-care (01) ==
LOC: ED 09:00
DX: S52.611A Displaced fracture of right ulna styloid process, initial encounter for closed fracture (principal); S52.571A Other intraarticular fracture of lower end of right radius, initial encounter for closed fracture; S60.221A Contusion of right hand, initial encounter; I11.0 Hypertensive heart disease with heart failure; I50.9 Heart failure, unspecified; I25.10 Atherosclerotic heart disease of native coronary artery without angina pectoris; E11.9 Type 2 diabetes mellitus without complications; I25.2 Old myocardial infarction; W01.0XXA Fall on same level from slipping, tripping and stumbling without subsequent striking against object, initial encounter; Y93.89 Activity, other specified; Y92.69 Other specified industrial and construction area as the place of occurrence of the external cause; Y99.0 Civilian activity done for income or pay
CPT/HCPCS: 20605; 99284

== ENCOUNTER 2020-07-13 09:30 | Inpatient (IN) | payer MEDICARE, MEDICAID ==
[~2020-07-13] VITALS: Ht 160 cm; Wt 59.8 kg
[2020-07-13] MEDS ORDERED: SODIUM CHLORIDE 0.9% 1,000 ML IV ONE ×2 (10:00→15:00)
[2020-07-13] MEDS ORDERED: PANTOPRAZOLE 40 MG IV IVPush ONE (10:00)
[2020-07-13] MEDS ORDERED: SODIUM CHLORIDE 0.9% 1,000ML IVBOLUS ONE (10:00)
[2020-07-13] MEDS ORDERED: ONDANSETRON 2MG/ML, 2ML IVPush ONE (10:00)
[2020-07-13 10:21] LABS: BASOPHILS % (AUTO) 0 % (0-1); EOSINOPHILS % (AUTO) 0 % (1-7); LYMPHOCYTES % (AUTO) 2 % (22-44); MEAN CORPUSCULAR HEMOGLOBIN 28.4 pg (27.0-34.8); MEAN CORPUSCULAR HGB CONC 31.6 g/dL (32.4-35.8); MONOCYTES % (AUTO) 6 % (2-9); NEUTROPHILS % (AUTO) 92 % (42-75); PLATELET COUNT 727 x10^3/uL (130-400); RED CELL DISTRIBUTION WIDTH 18.8 % (9.6-15.2)
[2020-07-13 10:32] LABS: ALBUMIN 3.5 g/dL (3.4-5.0); ANION GAP 8 mmol/L (5-15); CALCIUM 9.2 mg/dL (8.5-10.1); CHLORIDE 104 mmol/L (98-107)
[2020-07-13] MEDS ORDERED: ONDANSETRON 2MG/ML, 2ML ONE (10:32)
[2020-07-13] MEDS ORDERED: PANTOPRAZOLE 40 MG IV ONE (10:32)
[2020-07-13 10:34] LABS: INTERNATIONAL NORMALIZED RATIO 1.3 (0.93-1.1); PROTHROMBIN TIME 13.8 Seconds (9.6-11.5)
[2020-07-13 10:38] LABS: ALANINE AMINOTRANSFERASE 26 U/L (12-78); ALKALINE PHOSPHATASE 161 U/L (45-117); BILIRUBIN,TOTAL 0.6 mg/dL (0.2-1.0); CREATININE 0.84 mg/dL (0.55-1.02); TOTAL PROTEIN 7.8 g/dL (6.4-8.2); TROPONIN I 0.083 ng/mL (0.000-0.045)
--- NOTE | 2020-07-13 10:43 | NUR ---
IV bolus started and running well. Meds given as ordered. Lab and xray results reviewed.
--- NOTE | 2020-07-13 10:45 | NUR ---
Pt placed on 2L/min O2 to keep spo2 >94% with good effect.
[2020-07-13 10:49] LABS: MD SCAN
--- NOTE | 2020-07-13 11:59 | NUR ---
Straight cath UA sample obtained with sterile technique andwalked to lab now.
[2020-07-13 12:31] LABS: MICROSCOPIC INDICATED
--- NOTE | 2020-07-13 13:01 | NUR ---
MD at bedside for exam/recheck at this time. Second liter started for 500mL bolus after the first liter completed.
--- NOTE | 2020-07-13 13:32 | NUR ---
Pt noted to be out of room with abhilash removed. CT is where she went according to her daughter.
--- NOTE | 2020-07-13 14:25 | NUR ---
CT results reviewed and pt to be admitted. Pt and daughter aware and VS reassessed.
[2020-07-13] MEDS ORDERED: PRIM50TA34 PO (14:33)
[2020-07-13] MEDS ORDERED: FERR324T5 PO (14:33)
--- NOTE | 2020-07-13 14:37 | NUR ---
Med request sent to pharmacy for Cefotetan. Pt and daughter aware of order and allergies confirmed as PCN and codeine.
--- NOTE | 2020-07-13 14:59 | NUR ---
Cefotetan arrived from pharmacy and started as IVPB now. NS bolus completed for a total of 1500mL NS over 5 hours.
[2020-07-13] MEDS ORDERED: SODIUM CHLORIDE FLUSH 10ML SYR IVF PRN (15:00)
[2020-07-13] MEDS ORDERED: CEFOTETAN PMX 1GM/50ML 50 ML IVPB ONE (15:00)
[2020-07-13] MEDS ORDERED: [UNRECOGNIZED DRUG - REMARK] MC PRN ×2 (15:00)
--- NOTE | 2020-07-13 15:12 | NUR ---
Report given to [facility] and care transferred.
--- NOTE | 2020-07-13 15:29 | NUR ---
PT IN BED ON ORDER CLERK, RESPIRATIONS RAPID AND SUPPORTED BY NASAL CANNULA AT 3L/MIN. PT COMPLAINING OF 9/10 BELLY PAIN, DAUGHTER AT BEDSIDE COLLECTING PT BELONGINGS. OR CALLED FOR REPORT. PT TO TRANSFER SHORTLY.
[2020-07-13] MEDS ORDERED: CHLORHEXIDINE 15 ML UDC ONE (15:40)
[2020-07-13] MEDS ORDERED: CHLORHEXIDINE 15 ML UDC PO ONE (16:00)
[2020-07-13] MEDS ORDERED: FUROSEMIDE 20 MG/2 ML IV ONE (16:30)
[2020-07-13] MEDS ORDERED: ONDANSETRON 2MG/ML, 2ML IVPush PRN (16:30)
[2020-07-13] MEDS ORDERED: ENOXAPARIN 40 MG/0.4 ML SQ SCH (16:30)
[2020-07-13 17:15] VITALS: BP 159/76
[2020-07-13] MEDS ORDERED: ENALAPRILAT 1.25 MG/ML, 2ML IV PRN (18:30)
[2020-07-13] MEDS: CEFEPIME 2 GM in DEXTROSE 5% 100 ML IV SCH (18:35)
[2020-07-13 19:24] LABS: TROPONIN I 0.084 ng/mL (0.000-0.045)
[2020-07-13 19:44] VITALS: BP 145/73
[2020-07-13] MEDS: METOPROLOL 1 MG/ML, 5ML IVPush SCH (21:20)
[2020-07-13] MEDS: METRONIDAZOLE PMX 500MG/100ML 100 ML IV SCH (21:25)
[2020-07-14] VITALS (8 sets, daily range): BP systolic 109–153; BP diastolic 66–78
[2020-07-14 00:38] LABS: TROPONIN I 0.082 ng/mL (0.000-0.045)
[2020-07-14] MEDS: CEFEPIME 2 GM in DEXTROSE 5% 100 ML IV SCH ×3 (02:29→23:13)
[2020-07-14 05:06] LABS: BASOPHILS % (AUTO) 0 % (0-1); EOSINOPHILS % (AUTO) 0 % (1-7); LYMPHOCYTES % (AUTO) 3 % (22-44); MEAN CORPUSCULAR HGB CONC 32.9 g/dL (32.4-35.8); MEAN PLATELET VOLUME 8.7 fL (7.4-10.4); MONOCYTES % (AUTO) 8 % (2-9); NEUTROPHILS % (AUTO) 89 % (42-75); PLATELET COUNT 527 x10^3/uL (130-400); RED BLOOD COUNT 3.93 x10^6/uL (3.82-5.3)
[2020-07-14] MEDS: METOPROLOL 1 MG/ML, 5ML IVPush SCH ×3 (05:10→23:11)
[2020-07-14] MEDS: METRONIDAZOLE PMX 500MG/100ML 100 ML IV SCH ×3 (05:11→21:27)
[2020-07-14 05:14] LABS: CALCIUM 8.6 mg/dL (8.5-10.1); CHLORIDE 109 mmol/L (98-107)
[2020-07-14 05:19] LABS: ALANINE AMINOTRANSFERASE 18 U/L (12-78); ALBUMIN 2.6 g/dL (3.4-5.0); ALKALINE PHOSPHATASE 118 U/L (45-117); ANION GAP 7 mmol/L (5-15); BILIRUBIN,TOTAL 0.9 mg/dL (0.2-1.0); CREATININE 0.89 mg/dL (0.55-1.02); TOTAL PROTEIN 6.3 g/dL (6.4-8.2)
[2020-07-14 05:28] LABS: MD NO
[2020-07-14] MEDS: INSULIN LISPRO 100 UNITS/ML, PEN SQ-INSULIN SCH ×4 (07:00→20:50)
[2020-07-14] MEDS: PANTOPRAZOLE 40 MG IV IVPush SCH (08:58)
[2020-07-14] MEDS ORDERED: MIDAZOLAM 1 MG/ML, 5ML ONE (09:09)
[2020-07-14] MEDS ORDERED: FENTANYL PF 100 MCG/2ML ONE (09:09)
[2020-07-14] MEDS ORDERED: NALOXONE 1 MG/ML, 2ML ONE (09:09)
[2020-07-14] MEDS ORDERED: FLUMAZENIL 0.1 MG/1 ML, 5ML ONE (09:09)
[2020-07-14] MEDS ORDERED: LIDOCAINE 1%, 10ML ONE (09:10)
[2020-07-14] MEDS: FUROSEMIDE 20 MG/2 ML IV SCH (10:44)
[2020-07-15 00:40] VITALS: BP 145/78
[2020-07-15] MEDS: METRONIDAZOLE PMX 500MG/100ML 100 ML IV SCH ×3 (05:26→21:49)
[2020-07-15 05:31] LABS: BASOPHILS % (AUTO) 1 % (0-1); EOSINOPHILS % (AUTO) 0 % (1-7); LYMPHOCYTES % (AUTO) 5 % (22-44); MEAN CORPUSCULAR HEMOGLOBIN 29.3 pg (27.0-34.8); MEAN PLATELET VOLUME 8.9 fL (7.4-10.4); MONOCYTES % (AUTO) 7 % (2-9); NEUTROPHILS % (AUTO) 88 % (42-75); PLATELET COUNT 506 x10^3/uL (130-400); RED BLOOD COUNT 3.67 x10^6/uL (3.82-5.3); RED CELL DISTRIBUTION WIDTH 19.1 % (9.6-15.2)
[2020-07-15 05:37] LABS: ALANINE AMINOTRANSFERASE 18 U/L (12-78); ALBUMIN 2.2 g/dL (3.4-5.0); ANION GAP 8 mmol/L (5-15); CALCIUM 8.3 mg/dL (8.5-10.1); CHLORIDE 112 mmol/L (98-107); CREATININE 0.94 mg/dL (0.55-1.02); MD NO
[2020-07-15 05:40] LABS: ALKALINE PHOSPHATASE 107 U/L (45-117); BILIRUBIN,TOTAL 0.6 mg/dL (0.2-1.0)
[2020-07-15] MEDS: INSULIN LISPRO 100 UNITS/ML, PEN SQ-INSULIN SCH ×4 (07:00→21:00)
[2020-07-15 07:07] VITALS: BP 126/74
[2020-07-15] MEDS ORDERED: POTASSIUM CHLORIDE 20 MEQ in SODIUM CHLORIDE 0.9% 250 ML IV ONE (08:00)
[2020-07-15] MEDS ORDERED: POTASSIUM CHLORIDE 20 MEQ TAB.ER.PRT PO ONE (08:30)
[2020-07-15] MEDS: PANTOPRAZOLE 40 MG IV IVPush SCH (10:20)
[2020-07-15] MEDS: LISINOPRIL 5 MG TABLET PO SCH (10:22)
[2020-07-15] MEDS: FUROSEMIDE 20 MG/2 ML IV SCH (10:23)
[2020-07-15] MEDS: CEFEPIME 2 GM in DEXTROSE 5% 100 ML IV SCH ×2 (10:56→23:21)
[2020-07-15] MEDS: ASPIRIN 81 MG TABLET EC PO SCH (10:57)
[2020-07-15] MEDS: METOPROLOL SUCCINATE 25 MG TAB.ER.24H PO SCH (10:57)
[2020-07-15] MEDS ORDERED: POTASSIUM CHLORIDE 20 MEQ PACKET PO ONE (11:30)
[2020-07-15 14:18] VITALS: BP 111/72
[2020-07-15 19:50] VITALS: BP 117/70
[2020-07-16 01:07] VITALS: BP 119/70
[2020-07-16 05:27] LABS: ALBUMIN 2.3 g/dL (3.4-5.0); ANION GAP 4 mmol/L (5-15); CALCIUM 8.3 mg/dL (8.5-10.1); CHLORIDE 115 mmol/L (98-107)
[2020-07-16] MEDS: METRONIDAZOLE PMX 500MG/100ML 100 ML IV SCH ×2 (05:27→13:55)
[2020-07-16 05:30] LABS: BASOPHILS % (AUTO) 1 % (0-1); EOSINOPHILS % (AUTO) 1 % (1-7); LYMPHOCYTES % (AUTO) 9 % (22-44); MEAN CORPUSCULAR HEMOGLOBIN 29.1 pg (27.0-34.8); MEAN CORPUSCULAR HGB CONC 32.5 g/dL (32.4-35.8); MEAN PLATELET VOLUME 9.3 fL (7.4-10.4); MONOCYTES % (AUTO) 6 % (2-9); NEUTROPHILS % (AUTO) 84 % (42-75); PLATELET COUNT 518 x10^3/uL (130-400); RED BLOOD COUNT 3.59 x10^6/uL (3.82-5.3); RED CELL DISTRIBUTION WIDTH 19.3 % (9.6-15.2)
[2020-07-16 05:32] LABS: MD NO
[2020-07-16 05:54] LABS: ALANINE AMINOTRANSFERASE 17 U/L (12-78); ALKALINE PHOSPHATASE 101 U/L (45-117); BILIRUBIN,TOTAL 0.4 mg/dL (0.2-1.0); TOTAL PROTEIN 6.1 g/dL (6.4-8.2)
[2020-07-16 06:05] LABS: CREATININE 0.85 mg/dL (0.55-1.02)
[2020-07-16 06:26] VITALS: BP 120/75
[2020-07-16] MEDS: ASPIRIN 81 MG TABLET EC PO SCH (06:37)
[2020-07-16] MEDS: PANTOPRAZOLE 40 MG IV IVPush SCH (06:37)
[2020-07-16] MEDS: METOPROLOL SUCCINATE 25 MG TAB.ER.24H PO SCH (06:37)
[2020-07-16] MEDS: INSULIN LISPRO 100 UNITS/ML, PEN SQ-INSULIN SCH ×4 (07:30→20:55)
[2020-07-16] MEDS: LISINOPRIL 5 MG TABLET PO SCH (10:32)
[2020-07-16] MEDS: FUROSEMIDE 20 MG/2 ML IV SCH (10:33)
[2020-07-16] MEDS: CEFEPIME 2 GM in DEXTROSE 5% 100 ML IV SCH (10:34)
[2020-07-16 13:00] VITALS: BP 118/78
[2020-07-16] MEDS: metroNIDAZOLE 500 MG TABLET PO SCH (18:45)
[2020-07-16 19:17] VITALS: BP 126/72
[2020-07-16] MEDS: CEFDINIR 300 MG CAPSULE PO SCH (20:52)
[2020-07-16 22:45] VITALS: BP 136/66
[2020-07-17] MEDS: metroNIDAZOLE 500 MG TABLET PO SCH ×3 (01:07→16:30)
[2020-07-17 01:43] VITALS: BP 121/68
[2020-07-17 05:11] LABS: BASOPHILS % (AUTO) 1 % (0-1); EOSINOPHILS % (AUTO) 2 % (1-7); LYMPHOCYTES % (AUTO) 12 % (22-44); MEAN CORPUSCULAR HEMOGLOBIN 28.6 pg (27.0-34.8); MEAN PLATELET VOLUME 8.9 fL (7.4-10.4); MONOCYTES % (AUTO) 9 % (2-9); NEUTROPHILS % (AUTO) 76 % (42-75); PLATELET COUNT 518 x10^3/uL (130-400); RED BLOOD COUNT 3.89 x10^6/uL (3.82-5.3); RED CELL DISTRIBUTION WIDTH 18.9 % (9.6-15.2)
[2020-07-17 05:13] LABS: MD NO
[2020-07-17 05:15] LABS: ANION GAP 6 mmol/L (5-15); CALCIUM 8.5 mg/dL (8.5-10.1); CHLORIDE 111 mmol/L (98-107)
[2020-07-17 05:17] LABS: CREATININE 0.76 mg/dL (0.55-1.02)
[2020-07-17] MEDS: METOPROLOL SUCCINATE 25 MG TAB.ER.24H PO SCH (05:56)
[2020-07-17] MEDS: ASPIRIN 81 MG TABLET EC PO SCH (05:56)
[2020-07-17 07:00] VITALS: BP 144/72
[2020-07-17] MEDS: INSULIN LISPRO 100 UNITS/ML, PEN SQ-INSULIN SCH ×4 (07:00→20:22)
[2020-07-17] MEDS: LISINOPRIL 5 MG TABLET PO SCH (08:00)
[2020-07-17] MEDS: POTASSIUM CHLORIDE 10 MEQ TABLET.ER PO SCH (08:00)
[2020-07-17] MEDS: CEFDINIR 300 MG CAPSULE PO SCH ×2 (08:00→20:22)
[2020-07-17] MEDS: PANTOPRAZOLE 40 MG IV IVPush SCH (08:00)
[2020-07-17] MEDS: FUROSEMIDE 20 MG TABLET PO SCH (08:03)
[2020-07-17] MEDS ORDERED: FUROSEMIDE 40 MG TABLET PO SCH (09:00)
[2020-07-17 13:20] VITALS: BP 104/64
[2020-07-17 18:39] VITALS: BP 115/73
[2020-07-18] MEDS: metroNIDAZOLE 500 MG TABLET PO SCH ×3 (00:29→15:51)
[2020-07-18 01:03] VITALS: BP 142/81
[2020-07-18] MEDS: METOPROLOL SUCCINATE 25 MG TAB.ER.24H PO SCH (05:36)
[2020-07-18] MEDS: ASPIRIN 81 MG TABLET EC PO SCH (05:36)
[2020-07-18] MEDS: INSULIN LISPRO 100 UNITS/ML, PEN SQ-INSULIN SCH ×3 (07:00→15:52)
[2020-07-18 07:14] VITALS: BP 130/77
[2020-07-18] MEDS: CEFDINIR 300 MG CAPSULE PO SCH (08:39)
[2020-07-18] MEDS: FUROSEMIDE 20 MG TABLET PO SCH (08:39)
[2020-07-18] MEDS: LISINOPRIL 5 MG TABLET PO SCH (08:39)
[2020-07-18] MEDS: POTASSIUM CHLORIDE 10 MEQ TABLET.ER PO SCH (08:40)
[2020-07-18] MEDS: PANTOPRAZOLE 40 MG IV IVPush SCH (08:40)
[2020-07-18 13:10] VITALS: BP 117/66
[2020-07-18] MEDS ORDERED: METR500T PO (13:17)
[2020-07-18] MEDS ORDERED: FURO20TA3 PO (13:17)
[2020-07-18] MEDS ORDERED: CEFD300C37 PO (13:17)
[2020-07-18] MEDS ORDERED: POTA10TA5 PO (13:17)
[2020-07-18] MEDS ORDERED: METF750T42 PO (13:34)
== END 2020-07-18 16:35 | DRG 871 ==
LOC: ED 12:02 → ORIP 14:45 → 5SO 17:38 → 4NW 07-16 22:22
PROVIDERS: ADMIT Internal Medicine; ATTEND Hospitalist
PROC: 0T9B70Z Drainage of Bladder with Drainage Device, Via Natural or Artificial Opening (ICD-10-PCS; principal; 2020-07-13)
PROC: 0F9430Z Drainage of Gallbladder with Drainage Device, Percutaneous Approach (ICD-10-PCS; 2020-07-14)
DX: A41.9 Sepsis, unspecified organism (principal); I50.33 Acute on chronic diastolic (congestive) heart failure; J96.01 Acute respiratory failure with hypoxia; I21.A1 Myocardial infarction type 2; K80.00 Calculus of gallbladder with acute cholecystitis without obstruction; I42.9 Cardiomyopathy, unspecified; Z94.4 Liver transplant status; Z66 Do not resuscitate; I35.0 Nonrheumatic aortic (valve) stenosis; E11.51 Type 2 diabetes mellitus with diabetic peripheral angiopathy without gangrene; I25.10 Atherosclerotic heart disease of native coronary artery without angina pectoris; I11.0 Hypertensive heart disease with heart failure; Z20.822 Contact with and (suspected) exposure to COVID-19; E78.5 Hyperlipidemia, unspecified; E86.0 Dehydration; E87.6 Hypokalemia; F17.200 Nicotine dependence, unspecified, uncomplicated; J44.9 Chronic obstructive pulmonary disease, unspecified; K21.9 Gastro-esophageal reflux disease without esophagitis; Z79.82 Long term (current) use of aspirin; Z87.11 Personal history of peptic ulcer disease; I25.2 Old myocardial infarction; Z95.5 Presence of coronary angioplasty implant and graft; Z79.899 Other long term (current) drug therapy; Z88.0 Allergy status to penicillin; Z88.5 Allergy status to narcotic agent
CPT/HCPCS: 36415; 71045; 74177; 75989; 76705; 80048; 80053; 81001; 82962; 83605; 83690; 83880; 84145; 84484; 85025; 85610; 86850; 86900; 87070; 87075; 87077; 87205; 87635; 93005; 96374; 99156; 99157; G0378; J1650; J2250; J2405; J3010; C1729; C1769; C9113; J1940; J2310; J7030